=== PATIENT | female | born 1935 | race Caucasian/White ===

== ENCOUNTER 2016-09-10 11:14 | Emergency (ER) | payer MEDICARE, OTHER ==
[~2016-09-10] VITALS: Ht 152.4 cm; Wt 55.0 kg
[~2016-09-10 11:14] MED LIST: ACET325 PO; ASPI81TA82 PO; CALTTAB5 PO; COZA25TA PO; MULTCAP20 PO; OMEP20TA PO; PREM0.3T2 PO; SYMB80AE INH
[2016-09-10 11:17] VITALS: BP 140/67; PULSE 95; RESP 17; TEMP 98.6; O2SAT 97
[2016-09-10] MEDS ORDERED: ICAPCAP PO (11:43)
[2016-09-10] MEDS ORDERED: COZA50TA PO (11:43)
[2016-09-10] MEDS ORDERED: ASPI1TAB69 PO (11:43)
[2016-09-10] MEDS ORDERED: OMEP20TA PO (11:43)
[2016-09-10] MEDS ORDERED: SYMB160A INH (11:43)
[2016-09-10] MEDS ORDERED: CALTTAB PO (11:43)
--- NOTE | 2016-09-10 12:09 | PD ---
HPI Chief Complaint: Cold / Flu Symptoms Time Seen by Provider: 11:48 Travel History International Travel<30 days: No Contact w/Intl Traveler<30days: No Traveled to known affect area: No History of Present Illness HPI This 81-year-old female says she been having a cough and sore throat. She has been sick off and on since last . She says she had gone to visit family over the holidays and a lot of them had upper respiratory infections. She has been trying to drink lots of fluids. She says that yesterday she felt very weak and thought he passed out at one point. She lay down on the bathroom floor and did not pass out. She has a history of breast cancer. She had been started on anestrazole a few weeks ago. She developed a lot of muscle cramping and was taken off of the medication. She says that yesterday she had some pain across her chest which she attributed to the anestrazole. She has been coughing. PFSH Past Medical History Hx Anticoagulant Therapy: Yes (ASA 81 MG DAILY) Asthma: Yes Cancer: Yes (nonhodgkins lymphoma) Cardiovascular Problems: Yes (HTN) Chemotherapy: No Diabetes: No Diminished Hearing: No Gastrointestinal Disorders: Yes (GERD) Glaucoma: Yes Genitourinary: Yes (FREQUENT UTI) Hypertension: Yes Immune Disorder: No Musculoskeletal: Yes (ARTHRITIS, CERVICAL PROBLEMS) Immunizations Current: Yes Tetanus Vaccination: < 5 Years Influenza Vaccination: Yes Past Surgical History Gynecologic Surgery: Yes (D&C X 2) Joint Replacement: No Oral Surgery: Yes (TONSILLECTOMY) Pacemaker: No Other Surgery: Yes (bilateral mastectomy) Social History Alcohol Use: Yes (occ) Tobacco Use: No Substance Use: No Allergies-Medications (Allergen,Severity, Reaction): Coded Allergies: Cipro (Verified Allergy, Severe, 09/10/16) Codeine (Verified Allergy, Severe, 09/10/16) Ezetimibe (Verified Allergy, Severe, ALLERGY TO VYTORIN : EZETIMIBE/ SIMVASTATIN, 09/10/16) Lipitor (Verified Allergy, Severe, 09/10/16) Simvastatin (Verified Allergy, Severe, ALLERGY TO VYTORIN: EZETIMIBE/ SIMVASTATIN: ALL TO CRESTOR, 09/10/16) Bactrim (Verified Allergy, Intermediate, HIVES, 09/10/16) Combigan (Verified Allergy, Intermediate, INCREASES BP, 09/10/16) Niacin (Verified Allergy, Intermediate, RASH, 09/10/16) Xalatan (Unverified Allergy, Unknown, INCREASED BP, 09/10/16) Lyrica (Unverified Adverse Reaction, Unknown, UNABLE TO FUNCTION; MAKES HER GOOFY, 09/10/16) Reported Meds & Prescriptions Reported Meds & Active Scripts Active Reported Symbicort Inh (Budesonide/Formoterol Fumarate) 160-4.5 Mcg/Act Aero 1 Puff INH Q12HR PRN Caltrate 600+D (Calcium Carbonate-Cholecalciferol) 600-800 Mg-Unit Tab 1 Tab PO DAILY Icaps (Multiple Vitamins W/ Minerals) 1 Cap 1 Cap PO DAILY Aspirin 81 Mg Tabdr 81 Mg PO DAILY Omeprazole 20 Mg Tab 20 Mg PO DIRECTED PRN Cozaar (Losartan Potassium) 50 Mg Tab 50 Mg PO DAILY Review of Systems General / Constitutional: No: Fever, Chills Eyes: No: Diploplia, Blurred Vision HENT: No: Headaches Cardiovascular: Positive: Chest Pain or Discomfort Respiratory: Positive: Cough, Shortness of Breath Gastrointestinal: No: Nausea, Vomiting Genitourinary: No: Urgency, Frequency Musculoskeletal: Positive: Myalgias, Arthralgias Skin: No Rash Neurologic: No: Weakness Physical Exam Narrative GENERAL: Well-developed female SKIN: Warm and dry. HEAD: Atraumatic. Normocephalic. EYES: Pupils equal and round. No scleral icterus. No injection or drainage. ENT: No nasal bleeding or discharge. Mucous membranes pink and moist. NECK: Trachea midline. No JVD. CARDIOVASCULAR: Regular rate and rhythm. No murmur appreciated. RESPIRATORY: No accessory muscle use. There are some rales at the right base. Breath sounds equal bilaterally. Bilateral mastectomy scars are healing without evidence of infection GASTROINTESTINAL: Abdomen soft, non-tender, nondistended. Hepatic and splenic margins not palpable. MUSCULOSKELETAL: No obvious deformities. No clubbing. No cyanosis. No edema. NEUROLOGICAL: Awake and alert. No obvious cranial nerve deficits. Motor grossly within normal limits. Normal speech. PSYCHIATRIC: Appropriate mood and affect; insight and judgment normal. Data Data Last Documented VS Vital Signs Date Time Temp Pulse Resp B/P Pulse Ox O2 Delivery O2 Flow Rate FiO2 09/10/16 13:17 83 16 154/74 96 Room Air 09/10/16 11:17 98.6 Orders Electrocardiogram (09/10/16 12:05) Complete Blood Count With Diff (09/10/16 12:05) Comprehensive Metabolic Panel (09/10/16 12:05) Troponin I (09/10/16 12:05) B-Type Natriuretic Peptide (09/10/16 12:05) Urinalysis - C+S If Indicated (09/10/16 12:05) Magnesium (Mg) (09/10/16 12:05) Chest, Pa & Lat (09/10/16 12:05) Sodium Chlorid 0.9% 500 Ml Inj (Ns 500 M (09/10/16 12:15) Urine Culture (09/10/16 12:30) Labs Laboratory Tests Test 09/10/16 09/10/16 12:30 12:40 Urine Collection Type CLEAN CATCH Urine Color YELLOW Urine Turbidity SLIGHTY CLOUDY Urine pH 5.5 Urine Specific [place] 1.020 Urine Protein NEG mg/dL Urine Glucose (UA) NEG mg/dL Urine Ketones NEG mg/dL Urine Occult Blood NEG Urine Nitrite NEG Urine Bilirubin NEG Urine Leukocyte Esterase SMALL Urine RBC 0-3 /hpf Urine WBC 25-49 /hpf Urine WBC Clumps MOD Urine Bacteria FEW /hpf Microscopic Urinalysis Comment CULTURE INDICATED White Blood Count 6.9 TH/MM3 Red Blood Count 3.87 MIL/MM3 Hemoglobin 12.3 GM/DL Hematocrit 37.5 % Mean Corpuscular Volume 97.0 FL Mean Corpuscular Hemoglobin 31.8 PG Mean Corpuscular Hemoglobin 32.8 % Concent Red Cell Distribution Width 12.8 % Platelet Count 228 TH/MM3 Mean Platelet Volume 6.7 FL Neutrophils (%) (Auto) 50.5 % Lymphocytes (%) (Auto) 25.1 % Monocytes (%) (Auto) 7.5 % Eosinophils (%) (Auto) 16.2 % Basophils (%) (Auto) 0.7 % Neutrophils # (Auto) 3.6 TH/MM3 Lymphocytes # (Auto) 1.7 TH/MM3 Monocytes # (Auto) 0.5 TH/MM3 Eosinophils # (Auto) 1.1 TH/MM3 Basophils # (Auto) 0.0 TH/MM3 CBC Comment DIFF FINAL Differential Comment Sodium Level 145 MEQ/L Potassium Level 4.2 MEQ/L Chloride Level 107 MEQ/L Carbon Dioxide Level 26.6 MEQ/L Anion Gap 11 MEQ/L Blood Urea Nitrogen 19 MG/DL Creatinine 1.30 MG/DL Estimat Glomerular Filtration 39 ML/MIN Rate Random Glucose 97 MG/DL Calcium Level 9.1 MG/DL Magnesium Level 1.8 MG/DL Total Bilirubin 0.1 MG/DL Aspartate Amino Transf 31 U/L (AST/SGOT) Alanine Aminotransferase 23 U/L (ALT/SGPT) Alkaline Phosphatase 87 U/L Troponin I LESS THAN 0.02 NG/ML B-Type Natriuretic Peptide 82 PG/ML Total Protein 6.9 GM/DL Albumin 3.1 GM/DL [facility] Medical Decision Making Medical Screen Exam Complete: Yes Emergency Medical Condition: Yes Medical Record Reviewed: Yes Differential Diagnosis Differential includes URI, UTI, pneumonia Narrative Course Chest x-ray is negative. Urinalysis does show large amount of white cells. The patient has a history of frequent urinary tract infections. She was treated with amoxicillin and beginning of August. I will prescribe Macrobid her white count is normal Diagnosis Primary Impression: Urinary tract infection Qualified Code: N39.0 - Urinary tract infection without hematuria, site unspecified Scripts Nitrofurantoin Monohydrate Macrocrystals (Macrobid)100 Mg [id number] Mg PO BID 7 Days Ref 0 Prov:Alexis Gomez MD 09/10/16 Disposition: 01 DISCHARGE HOME Condition: Stable Alexis Gomez MD Sep 10, 2016 12:09
[2016-09-10] MEDS ORDERED: SODIUM CHLORID 0.9% 500 ML INJ 500 ML IV ONE (12:15)
[2016-09-10 12:41] LABS: BLOOD, URINE NEG (NEG); GLUCOSE,URINE NEG (NEG); KETONE, URINE NEG (NEG); NITRITE,URINE NEG (NEG); PH, URINE 5.5 (5.0-8.5)
[2016-09-10 12:47] LABS: METHOD OF COLLECTION CLEAN CATCH; URINE COLOR YELLOW (YELLW/STRAW)
[2016-09-10 12:53] LABS: AUTOMATED NEUTROPHIL # 3.6 TH/MM3 (1.8-7.7); BASOPHIL % 0.7 % (0.0-2.0); EOSINOPHIL # 1.1 TH/MM3 (0-0.4); EOSINOPHIL % 16.2 % (0.0-4.0); HEMATOCRIT 37.5 % (35.0-46.0); HEMO FLAGS DIFF FINAL; LYMPH % 25.1 % (9.0-44.0); LYMPHOCYTE # 1.7 TH/MM3 (1.0-4.8); MEAN CORPUSCULAR HEMOGLOBIN 31.8 PG (27.0-34.0); MEAN CORPUSCULAR HGB CONC 32.8 % (32.0-36.0); MONO % 7.5 % (0.0-8.0); NEUT % 50.5 % (16.0-70.0); PLATELET COUNT 228 TH/MM3 (150-450); RED BLOOD COUNT 3.87 MIL/MM3 (4.00-5.30); RED CELL DISTRIBUTION WIDTH 12.8 % (11.6-17.2); WHITE BLOOD COUNT 6.9 TH/MM3 (4.0-11.0)
[2016-09-10 12:54] LABS: BACTERIA, URINE FEW /hpf; COMMENT (UR) CULTURE INDICATED; CULTURE IF INDICATED CULTURE INDICATED; RBC, URINE 0-3 /hpf (0-3)
[2016-09-10 13:02] LABS: CHLORIDE 107 MEQ/L (98-107); POTASSIUM 4.2 MEQ/L (3.5-5.1); SODIUM (NA) 145 MEQ/L (136-145)
[2016-09-10 13:06] LABS: ANION GAP 11 MEQ/L (5-15); BICARBONATE 26.6 MEQ/L (21.0-32.0); BLOOD UREA NITROGEN 19 MG/DL (7-18); MAGNESIUM 1.8 MG/DL (1.5-2.5)
--- NOTE | 2016-09-10 13:06 | RADHPO ---
EXAM DATE/TIME: 09/10/2016 12:23 [facility] COMPARISON: No previous studies available for comparison. INDICATIONS : Short of breath, cough MEDICAL HISTORY : Carcinoma, breast. Chronic obstructive pulmonary disease. SURGICAL HISTORY : Mastectomy, bilateral. [place] ENCOUNTER: Initial ACUITY: 4 - 6 days PAIN SCORE: 0/10 LOCATION: Bilateral chest FINDINGS: [id number] is in good position. The lungs are clear. Heart and pulmonary vascularity are normal. Portion of bony skeleton visualized is unremarkable. CONCLUSION: Negative chest for acute disease. Axel Ohara MD FACR on September 10, 2016 at 13:04 Board Certified Radiologist. This report was verified electronically.
[2016-09-10 13:09] LABS: ALT (GPT) 23 U/L (10-53); AST (GOT) 31 U/L (15-37); GLOMERULAR FILTRATION RATE 39 ML/MIN (>89)
[2016-09-10 13:10] LABS: TOTAL BILIRUBIN ADULT 0.1 MG/DL (0.2-1.0)
[2016-09-10 13:12] LABS: ALKALINE PHOSPHATASE 87 U/L (45-117)
[2016-09-10 13:17] VITALS: BP 154/74; PULSE 83; RESP 16; O2SAT 96
[2016-09-10] MEDS ORDERED: MACR100C2 PO (13:34)
--- NOTE | 2016-09-10 17:36 | EKG ---
Date Performed: 09/10/2016 Time Performed: 12:10:18 PTAGE: 81 years EKG: Sinus rhythm Possible anterior infarct - age undetermined Abnormal ECG NO PREVIOUS TRACING DOCTOR: Mao Lopez Interpretating Date/Time 09/10/2016 17:35:03
== END 2016-09-10 13:47 | disposition home or self-care (01) ==
LOC: PHED 11:14
DX: N39.0 Urinary tract infection, site not specified (principal); R94.31 Abnormal electrocardiogram [ECG] [EKG]; B96.20 Unspecified Escherichia coli [E. coli] as the cause of diseases classified elsewhere
CPT/HCPCS: 71020; 80053; 81001; 83735; 83880; 84484; 85025; 87077; 87086; 87186; 93005; 96360; 99285; J7040

== ENCOUNTER → 2016-09-15 | Outpatient (CLI) | payer MEDICARE, OTHER ==
[~2016-09-15] MED LIST changes: -ACET325 PO; +ASPI1TAB69 PO; -ASPI81TA82 PO; +CALTTAB PO; -CALTTAB5 PO; -COZA25TA PO; +COZA50TA PO; +ICAPCAP PO; +MACR100C2 PO; -MULTCAP20 PO; -PREM0.3T2 PO; +SYMB160A INH; -SYMB80AE INH
== END ==
LOC: PLAB 11:18
PROVIDERS: ATTEND Family Medicine
DX: M35.3 Polymyalgia rheumatica (principal)
CPT/HCPCS: 36415; 85652

== ENCOUNTER → 2016-09-26 | Outpatient (CLI) | payer MEDICARE, OTHER ==
[2016-09-26 13:17] LABS: HEMATOCRIT 37.3 % (35.0-46.0); MEAN CORPUSCULAR HEMOGLOBIN 32.6 PG (27.0-34.0); MEAN CORPUSCULAR HGB CONC 33.3 % (32.0-36.0); PLATELET COUNT 333 TH/MM3 (150-450); RED CELL DISTRIBUTION WIDTH 12.7 % (11.6-17.2); REVIEW FLAG FINAL; WHITE BLOOD COUNT 8.7 TH/MM3 (4.0-11.0)
[2016-09-26 13:38] LABS: BICARBONATE 27.3 MEQ/L (21.0-32.0); MAGNESIUM 2.1 MG/DL (1.5-2.5); POTASSIUM 4.1 MEQ/L (3.5-5.1)
== END ==
LOC: PLAB 08:36
PROVIDERS: ATTEND Family Medicine
DX: N18.3 Chronic kidney disease, stage 3 (moderate) (principal); R53.83 Other fatigue
CPT/HCPCS: 36415; 80048; 83735; 84100; 84443; 85027

== ENCOUNTER → 2016-12-05 | Outpatient (CLI) | payer MEDICARE, OTHER ==
[2016-12-05 13:33] LABS: HEMATOCRIT 37.8 % (35.0-46.0); MEAN CELL VOLUME 95.9 FL (80.0-100.0); MEAN CORPUSCULAR HEMOGLOBIN 31.6 PG (27.0-34.0); PLATELET COUNT 263 TH/MM3 (150-450); RED BLOOD COUNT 3.93 MIL/MM3 (4.00-5.30); RED CELL DISTRIBUTION WIDTH 14.1 % (11.6-17.2); REVIEW FLAG FINAL; WHITE BLOOD COUNT 7.8 TH/MM3 (4.0-11.0)
[2016-12-05 14:04] LABS: ALT (GPT) 19 U/L (10-53); ANION GAP 5 MEQ/L (5-15); AST (GOT) 18 U/L (15-37); BICARBONATE 29.2 MEQ/L (21.0-32.0); BLOOD UREA NITROGEN 24 MG/DL (7-18); CHLORIDE 107 MEQ/L (98-107); GLOMERULAR FILTRATION RATE 43 ML/MIN (>89); GLUCOSE,FASTING 88 MG/DL (74-99); POTASSIUM 4.7 MEQ/L (3.5-5.1); SODIUM (NA) 141 MEQ/L (136-145)
[2016-12-05 14:06] LABS: ALKALINE PHOSPHATASE 66 U/L (45-117); HDL CHOLESTEROL 46.6 MG/DL (40.0-60.0); LDL CHOLESTEROL 151 MG/DL (0-99); LDL CHOLESTEROL DIRECT 174 MG/DL (0-99); TOTAL BILIRUBIN ADULT 0.3 MG/DL (0.2-1.0)
== END ==
LOC: PLAB 07:53
PROVIDERS: ATTEND Family Medicine
DX: I25.10 Atherosclerotic heart disease of native coronary artery without angina pectoris (principal); E78.2 Mixed hyperlipidemia; I10 Essential (primary) hypertension
CPT/HCPCS: 36415; 80053; 80061; 83721; 85027; 85652

== ENCOUNTER → 2017-01-12 | Outpatient (CLI) | payer MEDICARE, OTHER | LOC: PLAB 10:51 | PROVIDERS: ATTEND Specialist | DX: R70.0 Elevated erythrocyte sedimentation rate (principal); M31.6 Other giant cell arteritis | CPT/HCPCS: 36415; 85652 ==

== ENCOUNTER → 2017-03-02 | Outpatient (CLI) | payer MEDICARE, OTHER ==
[2017-03-02 13:16] LABS: MEAN CELL VOLUME 96.7 FL (80.0-100.0); MEAN CORPUSCULAR HEMOGLOBIN 31.3 PG (27.0-34.0); MEAN CORPUSCULAR HGB CONC 32.4 % (32.0-36.0); PLATELET COUNT 288 TH/MM3 (150-450); RED BLOOD COUNT 3.82 MIL/MM3 (4.00-5.30); RED CELL DISTRIBUTION WIDTH 14.3 % (11.6-17.2); REVIEW FLAG FINAL; WHITE BLOOD COUNT 7.5 TH/MM3 (4.0-11.0)
[2017-03-02 13:45] LABS: WESTERGREN SEDIMENTATION RATE 24 mm/hr (0-30)
[2017-03-02 13:48] LABS: ANION GAP 6 MEQ/L (5-15); AST (GOT) 22 U/L (15-37); BLOOD UREA NITROGEN 21 MG/DL (7-18); CHLORIDE 107 MEQ/L (98-107); GLOMERULAR FILTRATION RATE 44 ML/MIN (>89); GLUCOSE,FASTING 88 MG/DL (74-99); POTASSIUM 4.5 MEQ/L (3.5-5.1); SODIUM (NA) 140 MEQ/L (136-145)
[2017-03-02 13:59] LABS: ALKALINE PHOSPHATASE 70 U/L (45-117); ALT (GPT) 18 U/L (10-53); FREE T4 0.91 NG/DL (0.76-1.46); HDL CHOLESTEROL 60.8 MG/DL (40.0-60.0); LDL CHOLESTEROL 166 MG/DL (0-99); LDL CHOLESTEROL DIRECT 165 MG/DL (0-99); TOTAL BILIRUBIN ADULT 0.4 MG/DL (0.2-1.0)
== END ==
LOC: PLAB 09:22
PROVIDERS: ATTEND Family Medicine
DX: M31.6 Other giant cell arteritis (principal); I25.10 Atherosclerotic heart disease of native coronary artery without angina pectoris; E78.2 Mixed hyperlipidemia; I10 Essential (primary) hypertension; E03.8 Other specified hypothyroidism; M35.3 Polymyalgia rheumatica
CPT/HCPCS: 36415; 80053; 80061; 83721; 84439; 84443; 85027; 85652

== ENCOUNTER → 2017-06-21 | Outpatient (CLI) | payer MEDICARE, OTHER ==
[2017-06-21 14:01] LABS: MEAN CELL VOLUME 99.5 FL (80.0-100.0); MEAN CORPUSCULAR HEMOGLOBIN 33.3 PG (27.0-34.0); MEAN CORPUSCULAR HGB CONC 33.5 % (32.0-36.0); PLATELET COUNT 311 TH/MM3 (150-450); RED BLOOD COUNT 3.72 MIL/MM3 (4.00-5.30); RED CELL DISTRIBUTION WIDTH 13.4 % (11.6-17.2); REVIEW FLAG FINAL; WHITE BLOOD COUNT 6.9 TH/MM3 (4.0-11.0)
[2017-06-21 14:26] LABS: ANION GAP 5 MEQ/L (5-15); AST (GOT) 17 U/L (15-37); BICARBONATE 27.2 MEQ/L (21.0-32.0); BLOOD UREA NITROGEN 21 MG/DL (7-18); CHLORIDE 106 MEQ/L (98-107); GLOMERULAR FILTRATION RATE 45 ML/MIN (>89); GLUCOSE,FASTING 79 MG/DL (74-99); POTASSIUM 4.6 MEQ/L (3.5-5.1); SODIUM (NA) 138 MEQ/L (136-145)
[2017-06-21 14:27] LABS: ALT (GPT) 17 U/L (10-53)
[2017-06-21 14:37] LABS: ALKALINE PHOSPHATASE 65 U/L (45-117); HDL CHOLESTEROL 57.6 MG/DL (40.0-60.0); LDL CHOLESTEROL 144 MG/DL (0-99); LDL CHOLESTEROL DIRECT 166 MG/DL (0-99); TOTAL BILIRUBIN ADULT 0.4 MG/DL (0.2-1.0)
[2017-06-21 14:39] LABS: WESTERGREN SEDIMENTATION RATE 22 mm/hr (0-30)
== END ==
LOC: PLAB 07:56
PROVIDERS: ATTEND Family Medicine
DX: I25.10 Atherosclerotic heart disease of native coronary artery without angina pectoris (principal); R53.83 Other fatigue; E78.4 Other hyperlipidemia; M35.3 Polymyalgia rheumatica
CPT/HCPCS: 36415; 80053; 80061; 83721; 84443; 85027; 85652

== ENCOUNTER → 2017-10-11 | Outpatient (CLI) | payer MEDICARE ==
[~2017-10-11] MED LIST changes: -OMEP20TA PO; +OMEP20TA93 PO
[2017-10-11 10:20] LABS: HEMATOCRIT 35.9 % (35.0-46.0); HEMOGLOBIN 12.4 GM/DL (11.6-15.3); MEAN CELL VOLUME 96.8 FL (80.0-100.0); MEAN CORPUSCULAR HEMOGLOBIN 33.3 PG (27.0-34.0); MEAN CORPUSCULAR HGB CONC 34.4 % (32.0-36.0); MEAN PLATELET VOLUME 6.9 FL (7.0-11.0); PLATELET COUNT 329 TH/MM3 (150-450); RED BLOOD COUNT 3.71 MIL/MM3 (4.00-5.30); RED CELL DISTRIBUTION WIDTH 13.2 % (11.6-17.2); WHITE BLOOD COUNT 9.6 TH/MM3 (4.0-11.0)
[2017-10-11 10:36] LABS: ALBUMIN 3.6 GM/DL (3.4-5.0); AST (GOT) 18 U/L (15-37); BICARBONATE 27.5 MEQ/L (21.0-32.0); BLOOD UREA NITROGEN 15 MG/DL (7-18); CALCIUM 9.4 MG/DL (8.5-10.1); CHLORIDE 102 MEQ/L (98-107); GLOMERULAR FILTRATION RATE 47 ML/MIN (>89); SODIUM (NA) 137 MEQ/L (136-145)
[2017-10-11 10:38] LABS: CHOLESTEROL 230 MG/DL (120-200); GLUCOSE,FASTING 91 MG/DL (74-99); MAGNESIUM 2.3 MG/DL (1.5-2.5)
[2017-10-11 10:47] LABS: ALKALINE PHOSPHATASE 93 U/L (45-117); ALT (GPT) 15 U/L (10-53); CHOLESTEROL/ HDL RATIO 4.18 RATIO; LDL CHOLESTEROL 149 MG/DL (0-99); LDL CHOLESTEROL DIRECT 162 MG/DL (0-99); PHOSPHORUS 3.5 MG/DL (2.5-4.9); TOTAL BILIRUBIN ADULT 0.3 MG/DL (0.2-1.0); TOTAL PROTEIN 7.5 GM/DL (6.4-8.2); TRIGLYCERIDES 129 MG/DL (42-150)
== END ==
LOC: PLAB 07:25
PROVIDERS: ATTEND Family Medicine
DX: I25.10 Atherosclerotic heart disease of native coronary artery without angina pectoris (principal); N18.3 Chronic kidney disease, stage 3 (moderate); R53.83 Other fatigue; E78.5 Hyperlipidemia, unspecified
CPT/HCPCS: 36415; 80053; 80061; 83721; 83735; 84100; 85027

== ENCOUNTER 2017-10-22 15:20 | Observation (INO) | payer MEDICARE ==
[2017-10-22] VITALS (7 sets, daily range): BP systolic 145–208; BP diastolic 61–88; PULSE 76–90; RESP 14–20; TEMP 96.4–99; O2SAT 95–100
[~2017-10-22] VITALS: Ht 152.4 cm; Wt 54.3 kg
[2017-10-22] MEDS ORDERED: ASPI81CH6 CHEW (15:42)
[2017-10-22] MEDS ORDERED: ALPR.25 PO (15:42)
[2017-10-22] MEDS ORDERED: LATA0.002 EACH EYE (15:42)
[2017-10-22] MEDS ORDERED: OCUVTAB4 PO (15:43)
[2017-10-22] MEDS ORDERED: SODIUM CHLORIDE 0.9% FLUSH 10 ML FLUSH IVF PRN (15:45)
--- NOTE | 2017-10-22 15:55 | PD ---
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 The patient was apparently out shopping with her sister when she developed a headache and nausea. She then walked to the car and was found unresponsive. Per EMS the patient's GCS was 3 for fire rescue, however she was suddenly arouse when they placed her on a monitor and performed a sternal rub. Patient denies having had chest pain or dyspnea. She currently feels well aside from a slight frontal headache which she rates as 4 out of 10. This is not the worst headache of her life. She has baseline visual changes from glaucoma and macular degeneration which she states is unchanged from baseline. No fevers, chills, cough, or recent illness. No hemoptysis. No melena or hematochezia. She denies history of DVT or PE. History of hypertension, however denies history of any cardiac disease. PFSH Past Medical History Hx Anticoagulant Therapy: Yes (ASA 81 MG DAILY) Asthma: Yes Cancer: Yes (nonhodgkins lymphoma, breast ) Cardiovascular Problems: Yes (HTN) High Cholesterol: Yes Chemotherapy: No COPD: Yes Diabetes: No Diminished Hearing: No Gastrointestinal Disorders: Yes (GERD) Glaucoma: Yes Genitourinary: Yes (FREQUENT UTI) Hypertension: Yes Immune Disorder: No Medical other: Yes (Macular degen., ocular migraine ) Musculoskeletal: Yes (ARTHRITIS, CERVICAL PROBLEMS) Immunizations Current: Yes Tetanus Vaccination: < 5 Years Influenza Vaccination: Yes ?: Not Menopausal: Yes Past Surgical History Gynecologic Surgery: Yes (D&C X 2) Joint Replacement: No Oral Surgery: Yes (TONSILLECTOMY) Pacemaker: No Other Surgery: Yes (bilateral mastectomy) Social History Alcohol Use: Yes (Occ.) Tobacco Use: No Substance Use: No Allergies-Medications (Allergen,Severity, Reaction): Coded Allergies: atorvastatin (Unverified Allergy, Severe, 10/22/17) ciprofloxacin (Unverified Allergy, Severe, Rash, 10/22/17) codeine (Unverified Allergy, Severe, Hives/itching, 10/22/17) ezetimibe (Unverified Allergy, Severe, ALLERGY TO VYTORIN : EZETIMIBE/ SIMVASTATIN, 10/22/17) pitavastatin (Verified Allergy, Severe, "Made me feel crazy", 10/22/17) simvastatin (Unverified Allergy, Severe, ALLERGY TO VYTORIN: EZETIMIBE/ SIMVASTATIN: ALL TO CRESTOR, 10/22/17) brimonidine (Unverified Allergy, Intermediate, INCREASES BP, 10/22/17) niacin (Unverified Allergy, Intermediate, RASH, 10/22/17) sulfamethoxazole (Unverified Allergy, Intermediate, HIVES, 10/22/17) timolol (Unverified Allergy, Intermediate, INCREASES BP, 10/22/17) trimethoprim (Unverified Allergy, Intermediate, HIVES, 10/22/17) latanoprost (Unverified Allergy, Unknown, INCREASED BP, 10/22/17) Aoxrrtd-Klj-Bkh Reductase Inhibitor (Verified Adverse Reaction, Severe, Muscle and joint pain, 10/22/17) pregabalin (Unverified Adverse Reaction, Unknown, UNABLE TO FUNCTION; MAKES HER GOOFY, 10/22/17) Reported Meds & Prescriptions Reported Meds & Active Scripts Active Reported Preservision Areds (Multiple Vitamins W/ Minerals) 1 Tab 1 Tab PO DAILY Latanoprost Opth Drops (Latanoprost) 0.005% Drops 1 Drop EACH EYE HS Refrigerate until opened. Xanax (Alprazolam) 0.25 Mg Tab 0.25 Mg PO Q8H PRN Aspirin Low Dose (Aspirin) 81 Mg Chew 81 Mg CHEW DAILY Symbicort Inh (Budesonide/Formoterol Fumarate) 160-4.5 Mcg/Act Aero 1 Puff INH Q12HR PRN Cozaar (Losartan Potassium) 50 Mg Tab 50 Mg PO DAILY Review of Systems Except as stated in HPI: all other systems reviewed are Neg Physical Exam Narrative GENERAL: Well-developed, well-nourished, awake, alert, comfortable, no apparent distress. SKIN: Focused skin assessment warm/dry. No rash. No pallor. HEAD: Atraumatic. Normocephalic. EYES: Pupils equal and round. No scleral icterus. No injection or drainage. ENT: Mucous membranes pink and moist. NECK: Trachea midline. No JVD. CARDIOVASCULAR: Regular rate and rhythm. No murmur appreciated. Distal pulses brisk and equal bilaterally. RESPIRATORY: No accessory muscle use. Clear to auscultation. Breath sounds equal bilaterally. GASTROINTESTINAL: Abdomen soft, non-tender, nondistended. MUSCULOSKELETAL: No obvious deformities. No clubbing. No cyanosis. No edema. NEUROLOGICAL: Awake and alert. No obvious cranial nerve deficits. Motor grossly within normal limits. Normal speech. PSYCHIATRIC: Appropriate mood and affect; insight and judgment normal. Data Data Last Documented VS Vital Signs Date Time Temp Pulse Resp B/P (MAP) Pulse Ox O2 Delivery O2 Flow Rate FiO2 10/22/17 18:10 88 14 169/68 (101) 98 Room Air 10/22/17 15:30 98.3 Orders Orders Electrocardiogram (10/22/17 15:43) Complete Blood Count With Diff (10/22/17 15:43) Comprehensive Metabolic Panel (10/22/17 15:43) Ckmb (Isoenzyme) Profile (10/22/17 15:43) Troponin I (10/22/17 15:43) Act Partial Throm Time (Ptt) (10/22/17 15:43) Prothrombin Time / Inr (Pt) (10/22/17 15:43) Urinalysis - C+S If Indicated (10/22/17 15:43) Chest, Single Ap (10/22/17 15:43) Ct Brain W/O Iv Contrast(Rout) (10/22/17 15:43) Ecg Monitoring (10/22/17 15:43) Iv Access Insert/Monitor (10/22/17 15:43) Oximetry (10/22/17 15:43) Sodium Chloride 0.9% Flush (Ns Flush) (10/22/17 15:45) Ct Pulmonary Angiogram (10/22/17 ) Cath For Specimen (10/22/17 17:40) Iodixanol 320 Inj (Rad Ct) (Visipaque 32 (10/22/17 17:52) Urine Culture (10/22/17 16:00) Nitrofurantoin Monohyd Macrocr (Macrobid (10/22/17 18:45) Place In Observation (10/22/17 ) Vital Signs (Adult) Q4H (10/22/17 19:18) Activity Oob With Assistance (10/22/17 19:18) Diet Regular Basic (10/23/17 Breakfast) Sodium Chloride 0.9% Flush (Ns Flush) (10/22/17 19:30) Sodium Chloride 0.9% Flush (Ns Flush) (10/22/17 21:00) Acetaminophen (Tylenol) (10/22/17 19:30) Ondansetron Inj (Zofran Inj) (10/22/17 19:30) Basic Metabolic Panel (Bmp) (10/23/17 06:00) Complete Blood Count With Diff (10/23/17 06:00) Heparin Inj (Heparin Inj) (10/22/17 19:30) Naloxone Inj (Narcan Inj) (10/22/17 19:30) Docusate Sodium-Senna (Berta-Colace) (10/22/17 21:00) Magnesium Hydroxide Liq (Milk Of Magnesi (10/22/17 19:30) Sennosides (Senokot) (10/22/17 19:30) Bisacodyl Supp (Dulcolax Supp) (10/22/17 19:30) Lactulose Liq (Lactulose Liq) (10/22/17 19:30) Nitrofurantoin Monohyd Macrocr (Macrobid (10/23/17 09:00) Manufacturing Electrician / Telemetry ERIC.Q8H (10/22/17 19:18) Echo 2d Comp With Doppler (10/22/17 ) Us Carotid Arteries Comp Bilat (10/22/17 ) Labs Laboratory Tests Test 10/22/17 16:00 10/22/17 16:20 Urine Color YELLOW Urine Turbidity CLEAR Urine pH 6.0 Urine Specific [place] 1.019 Urine Protein NEG mg/dL Urine Glucose (UA) NEG mg/dL Urine Ketones NEG mg/dL Urine Occult Blood NEG Urine Nitrite NEG Urine Bilirubin NEG Urine Leukocyte Esterase NEG Urine RBC 0-2 /hpf Urine WBC 9-14 /hpf Urine Squamous Epithelial Cells 0-5 /hpf Urine Bacteria MANY /hpf Microscopic Urinalysis Comment CULTURE INDICATED White Blood Count 11.3 TH/MM3 Red Blood Count 3.69 MIL/MM3 Hemoglobin 11.9 GM/DL Hematocrit 35.2 % Mean Corpuscular Volume 95.4 FL Mean Corpuscular Hemoglobin 32.4 PG Mean Corpuscular Hemoglobin Concent 33.9 % Red Cell Distribution Width 12.9 % Platelet Count 287 TH/MM3 Mean Platelet Volume 6.5 FL Neutrophils (%) (Auto) 75.5 % Lymphocytes (%) (Auto) 10.3 % Monocytes (%) (Auto) 2.6 % Eosinophils (%) (Auto) 11.0 % Basophils (%) (Auto) 0.6 % Neutrophils # (Auto) 8.4 TH/MM3 Lymphocytes # (Auto) 1.2 TH/MM3 Monocytes # (Auto) 0.3 TH/MM3 Eosinophils # (Auto) 1.2 TH/MM3 Basophils # (Auto) 0.1 TH/MM3 CBC Comment DIFF FINAL Differential Comment Prothrombin Time 10.2 SEC Prothromb Time International Ratio 1.0 RATIO Activated Partial Thromboplast Time 23.8 SEC Blood Urea Nitrogen 24 MG/DL Creatinine 1.30 MG/DL Random Glucose 119 MG/DL Total Protein 7.4 GM/DL Albumin 3.6 GM/DL Calcium Level 8.5 MG/DL Alkaline Phosphatase 82 U/L Aspartate Amino Transf (AST/SGOT) 20 U/L Alanine Aminotransferase (ALT/SGPT) 15 U/L Total Bilirubin 0.3 MG/DL Sodium Level 138 MEQ/L Potassium Level 4.2 MEQ/L Chloride Level 105 MEQ/L Carbon Dioxide Level 28.0 MEQ/L Anion Gap 5 MEQ/L Estimat Glomerular Filtration Rate 39 ML/MIN Total Creatine Kinase 58 U/L Troponin I LESS THAN 0.02 NG/ML MDM Medical Decision Making Medical Screen Exam Complete: Yes Emergency Medical Condition: Yes Interpretation(s) EKG: Sinus, rate 83, normal axis, normal intervals, no acute ischemic abnormality. Differential Diagnosis Syncope, dysrhythmia, PE, intracranial abnormality, anemia, metabolic abnormality Narrative Course Initial vital signs show heart rate 80, blood pressure 145/61, pulse ox 98% on room air, oral temp of 98.3F. CBC: WBC 11.3, hemoglobin 11.9, hematocrit 35.2, platelets 287. CMP is remarkable for BUN 24, creatinine 1.3, GFR 39 which is around her baseline, otherwise unremarkable. Cardiac enzymes are negative. UA: 9-14 wbc's, many bacteria, culture indicated. Chest x-ray: The lungs are clear. CT head: Senescent changes without acute intracranial abnormality. CT pulmonary angiogram: CONCLUSION: 1. No CT evidence for pulmonary artery embolism. 2. Mild scarring at the lung bases and right lung apex. 3. Otherwise, unremarkable CT examination of the chest. Patient and the patient's sister were made aware of all findings. She is resting comfortably. The patient had no significant events while on the monitor and storage bin tender in the emergency department. Patient admits to taking Mucinex D this morning. This may have contributed to her symptoms of syncope this afternoon. Patient's sister states that the patient was unresponsive for about 3-4 minutes. There was no seizure-like activity. Given her age and medical history, the patient will be admitted for overnight observation for syncope. Case discussed with hospitalist Dr. Pham who will admit the patient to the medical service. Diagnosis Primary Impression: Syncope Qualified Codes: R55 - Syncope and collapse Additional Impression: Urinary tract infection Qualified Codes: N39.0 - Urinary tract infection, site not specified Admitting Information Admitting Physician Requests: Observation Juice Worthy MD Oct 22, 2017 15:55
--- NOTE | 2017-10-22 16:18 | RADRPT ---
EXAM DATE/TIME: 10/22/2017 16:05 [facility] COMPARISON: No previous studies available for comparison. INDICATIONS : Syncope MEDICAL HISTORY : Chronic obstructive pulmonary disease. SURGICAL HISTORY : Mastectomy, bilateral. [place] ENCOUNTER: Initial ACUITY: 1 day PAIN SCORE: 10 LOCATION: Bilateral chest FINDINGS: A single view of the chest demonstrates the lungs to be symmetrically aerated without evidence of mas s, infiltrate or effusion. No evidence of pneumothorax. The cardiomediastinal contours are unremarka ble. Osseous structures are intact. Hemoclips project over the left chest. Dvgidr-y-Moir catheter tip projects over the distal superior vena cava. CONCLUSION: The lungs are clear. Ezio Levy MD on October 22, 2017 at 16:16 Board Certified Radiologist. This report was verified electronically.
[2017-10-22 16:24] LABS: AUTOMATED NEUTROPHIL # 8.4 TH/MM3 (1.8-7.7); BASOPHIL # 0.1 TH/MM3 (0-0.2); BASOPHIL % 0.6 % (0.0-2.0); EOSINOPHIL # 1.2 TH/MM3 (0-0.4); HEMATOCRIT 35.2 % (35.0-46.0); HEMOGLOBIN 11.9 GM/DL (11.6-15.3); LYMPH % 10.3 % (9.0-44.0); LYMPHOCYTE # 1.2 TH/MM3 (1.0-4.8); MEAN CELL VOLUME 95.4 FL (80.0-100.0); MEAN CORPUSCULAR HEMOGLOBIN 32.4 PG (27.0-34.0); MEAN CORPUSCULAR HGB CONC 33.9 % (32.0-36.0); MEAN PLATELET VOLUME 6.5 FL (7.0-11.0); MONO % 2.6 % (0.0-8.0); MONOCYTE # 0.3 TH/MM3 (0-0.9); NEUT % 75.5 % (16.0-70.0); PLATELET COUNT 287 TH/MM3 (150-450); RED BLOOD COUNT 3.69 MIL/MM3 (4.00-5.30); RED CELL DISTRIBUTION WIDTH 12.9 % (11.6-17.2); WHITE BLOOD COUNT 11.3 TH/MM3 (4.0-11.0)
[2017-10-22 16:33] LABS: CHLORIDE 105 MEQ/L (98-107); SODIUM (NA) 138 MEQ/L (136-145)
[2017-10-22 16:35] LABS: CALCIUM 8.5 MG/DL (8.5-10.1)
[2017-10-22 16:36] LABS: ALBUMIN 3.6 GM/DL (3.4-5.0); BLOOD UREA NITROGEN 24 MG/DL (7-18); GLUCOSE,RANDOM 119 MG/DL (74-106)
[2017-10-22 16:37] LABS: PROTHROMBIN TIME - PATIENT 10.2 SEC (9.8-11.6)
[2017-10-22 16:39] LABS: ALT (GPT) 15 U/L (10-53); AST (GOT) 20 U/L (15-37); GLOMERULAR FILTRATION RATE 39 ML/MIN (>89)
[2017-10-22 16:41] LABS: TOTAL BILIRUBIN ADULT 0.3 MG/DL (0.2-1.0); TOTAL PROTEIN 7.4 GM/DL (6.4-8.2)
[2017-10-22 16:42] LABS: ALKALINE PHOSPHATASE 82 U/L (45-117); TROPONIN I LESS THAN 0.02 NG/ML (0.02-0.05)
--- NOTE | 2017-10-22 17:50 | RADRPT ---
EXAM DATE/TIME: 10/22/2017 17:39 [facility] COMPARISON: No previous studies available for comparison. INDICATIONS : Syncope. RADIATION DOSE: CTDIvol (mGy) MEDICAL HISTORY : Chronic obstructive pulmonary disease. Carcinoma, breast. Hypertension. SURGICAL HISTORY : Mastectomy, bilateral. ENCOUNTER: Initial ACUITY: 1 day PAIN SCALE: 0/10 LOCATION: cranial TECHNIQUE: Multiple contiguous axial images were obtained of the head. Using automated exposure control and adj ustment of the mA and/or kV according to patient size, radiation dose was kept as low as reasonably a chievable to obtain optimal diagnostic quality images. DICOM format image data is available electro nically for review and comparison. FINDINGS: CEREBRUM: Moderate cerebral volume loss. The ventricles are normal for degree of atrophy. No evidence of midli ne shift, mass lesion, hemorrhage or acute infarction. No extra-axial fluid collections are seen. POSTERIOR FOSSA: The cerebellum and brainstem are intact. The 4th ventricle is midline. The cerebellopontine angle i s unremarkable. EXTRACRANIAL: The visualized portion of the orbits is intact. SKULL: The calvaria is intact. No evidence of skull fracture. CONCLUSION: 1. Senescent changes without acute intracranial abnormality. Hong De Leon MD on October 22, 2017 at 17:47 Board Certified Radiologist. This report was verified electronically.
[2017-10-22] MEDS ORDERED: IODIXANOL 320 MG/ML 10 ML VIAL (for Rad CT) IVCONTRAST ONE (17:52)
--- NOTE | 2017-10-22 18:00 | RADRPT ---
EXAM DATE/TIME: 10/22/2017 17:45 [facility] COMPARISON: No previous studies available for comparison. INDICATIONS : Syncopal episode. IV CONTRAST: 50 cc Visipaque (iodixanol) IV RADIATION DOSE: 5.84 CTDIvol (mGy) MEDICAL HISTORY : Chronic obstructive pulmonary disease. Carcinoma, breast. SURGICAL HISTORY : Mastectomy, bilateral. ENCOUNTER: Initial ACUITY: 1 day PAIN SCALE: 0/10 LOCATION: chest TECHNIQUE: Volumetric scanning of the chest was performed using a pulmonary embolism protocol MIP images were re constructed. Using automated exposure control and adjustment of the mA and/or kV according to patien t size, radiation dose was kept as low as reasonably achievable to obtain optimal diagnostic quality images. DICOM format image data is available electronically for review and comparison. Follow-up recommendations for detected pulmonary nodules are based at a minimum on nodule size and pa tient risk factors according to Fleischner Society Guidelines. FINDINGS: PULMONARY ARTERIES: No filling defects are seen in the pulmonary arteries through the segmental level. LUNGS: Focal interstitial prominence at the lung bases with associated subtle bronchiectasis. Interstitial a nd groundglass opacities at the right lung apex. PLEURAE: There is no pleural thickening or pleural effusion. MEDIASTINUM: Subcentimeter mediastinal and hilar nodes do not meet CT size criteria. Heart is grossly unremarkable . Thoracic aorta is non-aneurysmal. MUSCULOSKELETAL: Within normal limits for patient age. MISCELLANEOUS: The visualized upper abdominal organs demonstrate no acute abnormality. CONCLUSION: 1. No CT evidence for pulmonary artery embolism. 2. Mild scarring at the lung bases and right lung apex. 3. Otherwise, unremarkable CT examination of the chest. Hong De Leon MD on October 22, 2017 at 17:56 Board Certified Radiologist. This report was verified electronically.
[2017-10-22 18:12] LABS: BILIRUBIN, URINE NEG (NEG); BLOOD, URINE NEG (NEG); GLUCOSE,URINE NEG (NEG); KETONE, URINE NEG (NEG); NITRITE,URINE NEG (NEG); URINE LEUKOCYTE ESTERASE NEG (NEG)
[2017-10-22 18:22] LABS: BACTERIA, URINE MANY /hpf; RBC, URINE 0-2 /hpf (0-3); SQUAMOUS EPITHELIAL CELL URINE 0-5 /hpf (0-5); URINE COLOR YELLOW (YELLW/STRAW)
[2017-10-22] MEDS ORDERED: NITROFURANTOIN MONOHYD MACROCR 100 MG CAP PO ONE (18:45)
[2017-10-22] MEDS ORDERED: GADODIAMIDE PF 287 MG/ML 20 ML VIAL (for RAD MRI) IVCONTRAST ONE (19:27)
[2017-10-22] MEDS ORDERED: SENNOSIDES 8.6 MG TAB PO PRN (19:30)
[2017-10-22] MEDS ORDERED: SODIUM CHLORIDE 0.9% FLUSH 10 ML FLUSH IV FLUSH PRN (19:30)
[2017-10-22] MEDS ORDERED: LACTULOSE SYRUP 20 GM/30 ML CUP PO PRN (19:30)
[2017-10-22] MEDS ORDERED: ONDANSETRON HCL 4 MG/2 ML VIAL IVP PRN (19:30)
[2017-10-22] MEDS ORDERED: MAGNESIUM HYDROXIDE SUSP 30 ML CUP PO PRN (19:30)
[2017-10-22] MEDS ORDERED: NALOXONE HCL 0.4 MG/ML AMP IV PUSH PRN (19:30)
[2017-10-22] MEDS ORDERED: BISACODYL 10 MG SUPP RECTAL PRN (19:30)
[2017-10-22] MEDS: ACETAMINOPHEN 325 MG TAB PO PRN (20:16)
[2017-10-22] MEDS: HEPARIN SODIUM - SQ 10,000 UNITS/ML VIAL SQ SCH (21:49)
[2017-10-22] MEDS: DOCUSATE SODIUM 50 MG/SENNA 8.6 MG TAB PO SCH (21:50)
[2017-10-22] MEDS: SODIUM CHLORIDE 0.9% FLUSH 10 ML FLUSH IV FLUSH SCH (22:34)
[2017-10-22] MEDS ORDERED: cloNIDine HCL 0.1 MG TAB PO ONE (23:30)
[2017-10-23] VITALS (7 sets, daily range): BP systolic 126–169; BP diastolic 59–77; PULSE 77–86; RESP 16–20; TEMP 97.1–98.1; O2SAT 94–98
[2017-10-23 06:45] LABS: BASOPHIL % 0.5 % (0.0-2.0); EOSINOPHIL # 1.2 TH/MM3 (0-0.4); EOSINOPHIL % 12.7 % (0.0-4.0); HEMATOCRIT 34.1 % (35.0-46.0); HEMOGLOBIN 11.1 GM/DL (11.6-15.3); LYMPH % 19.6 % (9.0-44.0); LYMPHOCYTE # 1.9 TH/MM3 (1.0-4.8); MEAN CELL VOLUME 95.2 FL (80.0-100.0); MEAN CORPUSCULAR HGB CONC 32.6 % (32.0-36.0); MONO % 5.7 % (0.0-8.0); MONOCYTE # 0.5 TH/MM3 (0-0.9); NEUT % 61.5 % (16.0-70.0); PLATELET COUNT 288 TH/MM3 (150-450); RED BLOOD COUNT 3.58 MIL/MM3 (4.00-5.30); WHITE BLOOD COUNT 9.6 TH/MM3 (4.0-11.0)
[2017-10-23 06:51] LABS: CALCIUM 8.8 MG/DL (8.5-10.1)
[2017-10-23 06:52] LABS: BICARBONATE 25.1 MEQ/L (21.0-32.0)
[2017-10-23 06:55] LABS: CREATININE 1.1 MG/DL (0.50-1.00)
[2017-10-23] MEDS: DOCUSATE SODIUM 50 MG/SENNA 8.6 MG TAB PO SCH (09:00)
[2017-10-23] MEDS: HEPARIN SODIUM - SQ 10,000 UNITS/ML VIAL SQ SCH ×2 (09:14→21:22)
[2017-10-23] MEDS: NITROFURANTOIN MONOHYD MACROCR 100 MG CAP PO SCH ×2 (09:14→17:53)
[2017-10-23] MEDS: SODIUM CHLORIDE 0.9% FLUSH 10 ML FLUSH IV FLUSH SCH ×2 (09:15→21:22)
--- NOTE | 2017-10-23 09:24 | HHI.HP ---
HPI Service [facility] Primary Care Physician Mark Villanueva MD Admission Diagnosis Syncope, UTI Diagnoses: Chief Complaint: Syncope Travel History International Travel<30 Days: No Contact w/Intl Traveler <30 Da: No Traveled to Known Affected Are: No History of Present Illness 82-year-old female with a medical history significant for lymphoma, breast cancer, and unspecified putamen lesion status post radiation with reported resolution from MRI about 2 weeks ago. The patient reports she was out chopping with her sister when she started to have a headache and mild lightheadedness. She went to sit in the car and minutes later her sister was unable to wake her up for about 3-4 minutes. No reported seizure activities. Patient denies any episodes of chest pain, or palpitations prior to the episode. She does report for the past couple of days she has had some head congestion and the morning of the episode she took some Mucinex DM. On my evaluation, the patient reports she feels great. She denies any lightheadedness , no headache, no focal weakness. Review of Systems Cardiovascular: COMPLAINS OF: Syncope Except as stated in HPI: all other systems reviewed are Neg Past Family Social History Past Medical History lymphoma, breast cancer, and unspecified putamen lesion status post radiation with reported resolution from MRI about 2 weeks ago Past Surgical History Bilateral mastectomy Tonsillectomy Reported Medications Reported Meds & Active Scripts Active Reported Preservision Areds (Multiple Vitamins W/ Minerals) 1 Tab 1 Tab PO DAILY Latanoprost Opth Drops (Latanoprost) 0.005% Drops 1 Drop EACH EYE HS Refrigerate until opened. Xanax (Alprazolam) 0.25 Mg Tab 0.25 Mg PO Q8H PRN Aspirin Low Dose (Aspirin) 81 Mg Chew 81 Mg CHEW DAILY Symbicort Inh (Budesonide/Formoterol Fumarate) 160-4.5 Mcg/Act Aero 1 Puff INH Q12HR PRN Cozaar (Losartan Potassium) 50 Mg Tab 50 Mg PO DAILY Allergies: Coded Allergies: atorvastatin (Unverified Allergy, Severe, 10/22/17) ciprofloxacin (Unverified Allergy, Severe, Rash, 10/22/17) codeine (Unverified Allergy, Severe, Hives/itching, 10/22/17) ezetimibe (Unverified Allergy, Severe, ALLERGY TO VYTORIN : EZETIMIBE/ SIMVASTATIN, 10/22/17) pitavastatin (Verified Allergy, Severe, "Made me feel crazy", 10/22/17) simvastatin (Unverified Allergy, Severe, ALLERGY TO VYTORIN: EZETIMIBE/ SIMVASTATIN: ALL TO CRESTOR, 10/22/17) brimonidine (Unverified Allergy, Intermediate, INCREASES BP, 10/22/17) niacin (Unverified Allergy, Intermediate, RASH, 10/22/17) sulfamethoxazole (Unverified Allergy, Intermediate, HIVES, 10/22/17) timolol (Unverified Allergy, Intermediate, INCREASES BP, 10/22/17) trimethoprim (Unverified Allergy, Intermediate, HIVES, 10/22/17) latanoprost (Unverified Allergy, Unknown, INCREASED BP, 10/22/17) Mabpyxh-Vde-Wjl Reductase Inhibitor (Verified Adverse Reaction, Severe, Muscle and joint pain, 10/22/17) pregabalin (Unverified Adverse Reaction, Unknown, UNABLE TO FUNCTION; MAKES HER GOOFY, 10/22/17) Family History Reviewed and is noncontributory. Social History No tobacco use. Occasional alcohol Physical Exam Vital Signs Vital Signs Date Time Temp Pulse Resp B/P (MAP) Pulse Ox O2 Delivery O2 Flow Rate FiO2 10/23/17 07:59 98.1 77 20 133/61 (85) 97 10/23/17 04:00 97.2 86 16 126/59 (81) 95 10/23/17 00:38 97.8 84 16 151/72 (98) 97 10/22/17 22:30 81 20 173/80 (111) 97 10/22/17 22:20 96.4 90 16 182/85 (117) 96 10/22/17 21:00 86 20 159/82 (107) 97 10/22/17 20:10 99.0 82 20 208/88 (128) 100 10/22/17 20:10 85 20 100 10/22/17 18:10 88 14 169/68 (101) 98 Room Air 10/22/17 16:30 76 14 145/69 (94) 98 Room Air 10/22/17 16:30 98 Room Air 10/22/17 15:30 98.3 80 16 145/61 (89) 98 Physical Exam GENERAL: This is a well-nourished, well-developed patient, in no apparent distress. SKIN: No rashes, ecchymoses or lesions. Cool and dry. HEAD: Atraumatic. Normocephalic. No temporal or scalp tenderness. EYES: Pupils equal round and reactive. Extraocular motions intact. No scleral icterus. No injection or drainage. ENT: Nose without bleeding, purulent drainage or septal hematoma. Throat without erythema, tonsillar hypertrophy or exudate. Uvula midline. Airway patent. NECK: Trachea midline. No JVD or lymphadenopathy. Supple, nontender, no meningeal signs. CARDIOVASCULAR: Regular rate and rhythm without murmurs, gallops, or rubs. RESPIRATORY: Clear to auscultation. Breath sounds equal bilaterally. No wheezes , rales, or rhonchi. GASTROINTESTINAL: Abdomen soft, non-tender, nondistended. No hepato-splenomegaly , or palpable masses. No guarding. MUSCULOSKELETAL: Extremities without clubbing, cyanosis, or edema. No joint tenderness, effusion, or edema noted. No calf tenderness. Negative Homans sign bilaterally. NEUROLOGICAL: Awake and alert. Cranial nerves II through XII intact. Motor and sensory grossly within normal limits. Five out of 5 muscle strength in all muscle groups. Normal speech. Laboratory Laboratory Tests Test 10/22/17 16:00 10/22/17 16:20 10/23/17 05:15 Urine Color YELLOW Urine Turbidity CLEAR Urine pH 6.0 Urine Specific [place] 1.019 Urine Protein NEG Urine Glucose (UA) NEG Urine Ketones NEG Urine Occult Blood NEG Urine Nitrite NEG Urine Bilirubin NEG Urine Leukocyte Esterase NEG Urine RBC 0-2 Urine WBC 9-14 Urine Squamous Epithelial Cells 0-5 Urine Bacteria MANY Microscopic Urinalysis Comment CULTURE INDICATED White Blood Count 11.3 9.6 Red Blood Count 3.69 3.58 Hemoglobin 11.9 11.1 Hematocrit 35.2 34.1 Mean Corpuscular Volume 95.4 95.2 Mean Corpuscular Hemoglobin 32.4 31.0 Mean Corpuscular Hemoglobin Concent 33.9 32.6 Red Cell Distribution Width 12.9 13.0 Platelet Count 287 288 Mean Platelet Volume 6.5 7.0 Neutrophils (%) (Auto) 75.5 61.5 Lymphocytes (%) (Auto) 10.3 19.6 Monocytes (%) (Auto) 2.6 5.7 Eosinophils (%) (Auto) 11.0 12.7 Basophils (%) (Auto) 0.6 0.5 Neutrophils # (Auto) 8.4 6.0 Lymphocytes # (Auto) 1.2 1.9 Monocytes # (Auto) 0.3 0.5 Eosinophils # (Auto) 1.2 1.2 Basophils # (Auto) 0.1 0.0 CBC Comment DIFF FINAL DIFF FINAL Differential Comment Prothrombin Time 10.2 Prothromb Time International Ratio 1.0 Activated Partial Thromboplast Time 23.8 Blood Urea Nitrogen 24 22 Creatinine 1.30 1.10 Random Glucose 119 90 Total Protein 7.4 Albumin 3.6 Calcium Level 8.5 8.8 Alkaline Phosphatase 82 Aspartate Amino Transf (AST/SGOT) 20 Alanine Aminotransferase (ALT/SGPT) 15 Total Bilirubin 0.3 Sodium Level 138 139 Potassium Level 4.2 4.2 Chloride Level 105 107 Carbon Dioxide Level 28.0 25.1 Anion Gap 5 7 Estimat Glomerular Filtration Rate 39 47 Total Creatine Kinase 58 Troponin I LESS THAN 0.02 Date/Time Source Procedure Growth Status 10/22/17 16:00 Urine Clean Catch Urine Culture Pending Received Result Diagram: 10/23/17 0515 10/23/17 0515 Imaging Last Impressions Head CT 10/22/17 1543 Signed Impressions: Service Date/Time: Sunday, October 22, 2017 17:39 - CONCLUSION: 1. Senescent changes without acute intracranial abnormality. Hong De Leon MD Chest X-Ray 10/22/17 1543 Signed Impressions: Service Date/Time: Sunday, October 22, 2017 16:05 - CONCLUSION: The lungs are clear. Ezio Levy MD CT Angiography 10/22/17 0000 Signed Impressions: Service Date/Time: Sunday, October 22, 2017 17:45 - CONCLUSION: 1. No CT evidence for pulmonary artery embolism. 2. Mild scarring at the lung bases and right lung apex. 3. Otherwise, unremarkable CT examination of the chest. Hong De Leon MD Caprini VTE Risk Assessment Manjeetrinfay VTE Risk Assessment: No/Low Risk (score <= 1) Caprini Risk Assessment Model Point Value = 1 Point Value = 2 Point Value = 3 Point Value = 5 Age 41-60 Minor surgery BMI > 25 kg/m2 Swollen legs Varicose veins or History of unexplained or recurrent spontaneous Oral contraceptives or hormone replacement Sepsis (< 1 month) Serious lung disease, including pneumonia (< 1 month) Abnormal pulmonary function Acute myocardial infarction Congestive heart failure (< 1 month) History of inflammatory bowel disease Medical patient at bed rest Age 61-74 Arthroscopic surgery Major open surgery (> 45 min) Laparoscopic surgery (> 45 min) Malignancy Confined to bed (> 72 hours) Immobilizing plaster cast Central venous access Age >= 75 History of VTE Family history of VTE Factor V Leiden Prothrombin [id number] Lupus anticoagulant Anticardiolipin antibodies Elevated serum homocysteine Heparin-induced thrombocytopenia Other congenital or acquired thrombophilia Stroke (< 1 month) Elective arthroplasty Hip, pelvis, or leg fracture Acute spinal cord injury (< 1 month) Prophylaxis Regimen Total Risk Factor Score Risk Level Prophylaxis Regimen 0-1 Low Early ambulation 2 Moderate Order ONE of the following: *Sequential Compression Device (SCD) *Heparin 5000 units SQ BID 3-4 Higher Order ONE of the following medications: *Heparin 5000 units SQ TID *Enoxaparin/Lovenox 40 mg SQ daily (WT < 150 kg, CrCl > 30 mL/min) *Enoxaparin/Lovenox 30 mg SQ daily (WT < 150 kg, CrCl > 10-29 mL/min) *Enoxaparin/Lovenox 30 mg SQ BID (WT < 150 kg, CrCl > 30 mL/min) AND/OR *Sequential Compression Device (SCD) 5 or more Highest Order ONE of the following medications: *Heparin 5000 units SQ TID (Preferred with Epidurals) *Enoxaparin/Lovenox 40 mg SQ daily (WT < 150 kg, CrCl > 30 mL/min) *Enoxaparin/Lovenox 30 mg SQ daily (WT < 150 kg, CrCl > 10-29 mL/min) *Enoxaparin/Lovenox 30 mg SQ BID (WT < 150 kg, CrCl > 30 mL/min) AND *Sequential Compression Device (SCD) Assessment and Plan Problem List: (1) Syncope ICD Code: R55 - Syncope and collapse Status: Acute Plan: Probably medication related. Patient took Mucinex DM the morning of the episode. UTI may be contributing but she is asymptomatic from that standpoint. She is completely asymptomatic currently. Reassuring exam Head CT unremarkable Telemetry so far show sinus rhythm with no arrhythmias. Continue to monitor for a total 24 hours Follow-up on 2-D echocardiogram and carotid ultrasound (2) Urinary tract infection ICD Code: N39.0 - Urinary tract infection, site not specified Status: Acute Plan: Patient was started on Macrobid from the ED. Continue the same. No history of resistant UTI. Plan for short course of antibiotics post discharge. Follow urine culture. Assessment and Plan Continue to monitor the patient on telemetry. Follow-up on echocardiogram and carotid ultrasound. Possible discharge later today. Problem Qualifiers (1) Syncope: Qualified Codes: R55 - Syncope and collapse (2) Urinary tract infection: Qualified Codes: N39.0 - Urinary tract infection, site not specified Blade Chairez MD Oct 23, 2017 09:24
[2017-10-23] MEDS ORDERED: NITR100C4 PO (11:01)
--- NOTE | 2017-10-23 11:01 | HHI.DCPOC ---
Discharge Care Plan Diagnosis: (1) Syncope (2) Urinary tract infection Goals to Promote Your Health * To prevent worsening of your condition and complications * To maintain your health at the optimal level Directions to Meet Your Goals Take your medications as prescribed Follow your dietary instruction Follow activity as directed Keep your appointments as scheduled Take your immunizations and boosters as scheduled If your symptoms worsen call your PCP, if no PCP go to Urgent Care Center or Emergency Room Smoking is Dangerous to Your Health. Avoid second hand smoke Call the 24-hour hour crisis hotline for domestic abuse at Blade Chairez MD Oct 23, 2017 11:01
[2017-10-23] MEDS: ASPIRIN 81 MG CHEW TAB CHEW SCH (11:12)
[2017-10-23] MEDS: LOSARTAN 50 MG TAB PO SCH (11:12)
--- NOTE | 2017-10-23 11:17 | RADRPT ---
EXAM DATE/TIME: 10/23/2017 09:54 [facility] COMPARISON: No previous studies available for comparison. EXTERNAL COMPARISON : [facility], US CAROTID ARTERIES, January 16, 2017 INDICATIONS : Syncope. MEDICAL HISTORY : Hypertension. Hypercholesterolemia. Chronic obstructive pulmonary disease. Glaucoma. Anticoagulant th erapy. Asthma. GERD. Urinary tract infection. Arthritis. NonHodgkins lymphoma, Breast. SURGICAL HISTORY : Tonsillectomy. Mastectomy, bilateral. Dilation and curretage. ENCOUNTER: Initial ACUITY: 1 day PAIN SCORE: 110 LOCATION: Bilateral neck PEAK SYSTOLIC VELOCITIES (cm/sec): ICA/CCA RATIO: Right: 2.2 Left: 1.3 ICA: Right: 148 Left: 78 CCA: Right: 68 Left: 58 ECA: Right: 279 Left: 127 VERTEBRAL: Right: 57 antegrade Left: 43 antegrade Elevated flow velocities and ICA/CCA ratios have been found to correlate with increased degrees of vessel stenosis, calculated as percentage of diameter relative to a normal segment of distal ICA/CCA FINDINGS: RIGHT CAROTID: Moderate eccentric calcific plaquing. Mild flow velocity acceleration across the carotid bifurcation likely indicative of stenosis on the order of 50-69%. LEFT CAROTID: Moderate eccentric calcific plaquing without definite objective evidence of significant stenosis VERTEBRAL ARTERIES: Antegrade flow is seen in both vertebral arteries. MISCELLANEOUS: None. 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 Objective measurements indicate at leas t moderate stenosis on the right. Further evaluation with CTA examination of the arch and carotids is suggested Demetrio Orellana MD on October 23, 2017 at 11:12 Board Certified Radiologist. This report was verified electronically.
[2017-10-23] MEDS: ACETAMINOPHEN 325 MG TAB PO PRN (12:52)
[2017-10-23] MEDS ORDERED: GADODIAMIDE PF 287 MG/ML 20 ML VIAL (for RAD MRI) IVCONTRAST ONE (17:27)
[2017-10-23] MEDS ORDERED: cloNIDine HCL 0.1 MG TAB PO PRN (17:45)
--- NOTE | 2017-10-23 17:58 | RADRPT ---
EXAM DATE/TIME: 10/23/2017 17:16 [facility] COMPARISON: No previous studies available for comparison. INDICATIONS : Dizziness. CONTRAST: 20 cc Omniscan (gadodiamide) IV MEDICAL HISTORY : Carcinoma, breast. Hypertension. SURGICAL HISTORY : Tonsillectomy. Mastectomy, bilateral. ENCOUNTER: Subsequent ACUITY: 2 day PAIN SCORE: 0/10 LOCATION: head. TECHNIQUE: Multiplanar, multisequence MRI of the brain was performed both prior to and following the administrat ion of paramagnetic contrast. FINDINGS: CEREBRUM: The ventricles are normal for age. No evidence of midline shift, mass lesion, hemorrhage or acute in farction. No extraaxial fluid collections are seen. The pituitary gland and suprasellar cistern are normal in configuration. WHITE MATTER: No significant signal abnormalities are seen in the white matter. POSTERIOR FOSSA: The cerebellum and brainstem are intact. The 4th ventricle is midline. The cerebellopontine angle is unremarkable. The cerebellar tonsils are normal in position. DIFFUSION IMAGING: No focal areas of restricted diffusion are seen. No evidence of acute infarction. EXTRACRANIAL: There is mild mucosal thickening in occasional facial sinuses and minimal fluid in the mastoids. POST-CONTRAST: No abnormal areas of parenchymal or dural enhancement. No evidence of blood-brain barrier breakdown. CONCLUSION: No acute intracranial findings. Demetrio Orellana MD on October 23, 2017 at 17:53 Board Certified Radiologist. This report was verified electronically.
--- NOTE | 2017-10-23 17:59 | RADRPT ---
EXAM DATE/TIME: 10/23/2017 17:16 [facility] COMPARISON: No previous studies available for comparison. INDICATIONS : Stenosis. CONTRAST: 20 cc Omniscan (gadodiamide) IV MEDICAL HISTORY : Carcinoma, breast. Hypertension. SURGICAL HISTORY : Tonsillectomy. Mastectomy, bilateral. ENCOUNTER: Subsequent ACUITY: 2 day PAIN SCORE: 0/10 LOCATION: neck Percent stenosis is calculated using the diameter of the stenotic region over the diameter of the nor mal distal internal carotid artery. TECHNIQUE: Bolus infused MRA of the extracranial circulation was performed using a neurovascular coil. Post pro cessing was performed including rotating subvolume maximum intensity projections of each carotid lana ry, rotating full volume maximum intensity projections of both carotid arteries, sagittal and coronal sliding thin slab reformations of each carotid artery, and left oblique sliding thin slab reformatio n through the aortic arch to include the origin of the arch branch vessels. FINDINGS: AORTIC ARCH: There is a three vessel origin of the great vessels from the aorta. No evidence of ostial narrowing. RIGHT CAROTID: Slight eccentric plaque involving the carotid bulb. No significant degree of stenosis. Right ICA is w idely patent to the skull base. LEFT CAROTID: The common carotid artery is intact. The carotid bulb has a normal configuration without ulceration or narrowing. The internal carotid artery lumen is smooth without stenosis. The external carotid ar bakari is intact. VERTEBRALS: The vertebral arteries have a symmetric diameter. No stenotic lesions are seen. CONCLUSION: No carotid stenosis. Demetrio Orellana MD on October 23, 2017 at 17:56 Board Certified Radiologist. This report was verified electronically.
--- NOTE | 2017-10-23 18:44 | EKG ---
Date Performed: 10/22/2017 Time Performed: 15:53:41 PTAGE: 82 years EKG: Sinus rhythm NORMAL ECG Since the prior tracing, there has been no significant change PREVIOUS TRACING : 09/10/2016 12.10 DOCTOR: Genny Gan Interpretating Date/Time 10/23/2017 18:42:02
--- NOTE | 2017-10-23 20:32 | ECHRPT ---
Indication: syncope CONCLUSIONS The left ventricular systolic function is normal with an estimated ejection fraction in the range of 55-60%. Doppler parameters are consistent with impaired left ventricular relaxtion (grade 1 diastolic dysfun ction). Trace mitral valve regurgitation. There is mild tricuspid valve regurgitation. BP: / HR: Rhythm: MEASUREMENTS (Male / Female) Normal Values Technical Quality:Fair 2D ECHO LV Diastolic Diameter PLAX 3.3 cm 4.2 - 5.9 / 3.9 - 5.3 cm LV Systolic Diameter PLAX 2.6 cm IVS Diastolic Thickness 1.1 cm 0.6 - 1.0 / 0.6 - 0.9 cm LVPW Diastolic Thickness 0.8 cm 0.6 - 1.0 / 0.6 - 0.9 cm LV Relative Wall Thickness 0.6 RV Internal Dim ED PLAX 2.0 cm M-MODE Aortic Root Diameter MM 2.6 cm LA Systolic Diameter MM 2.5 cm LA Ao Ratio MM 1.0 AV Cusp Separation MM 1.6 cm DOPPLER Mitral E Point Velocity 54.8 cm/s Mitral A Point Velocity 77.0 cm/s Mitral E to A Ratio 0.7 LV E' Lateral Velocity 4.4 cm/s Mitral E to LV E' Lateral Ratio 12.5 LV E' Septal Velocity 5.4 cm/s Mitral E to LV E' Septal Ratio 10.2 TR Peak Velocity 270.0 cm/s TR Peak Gradient 29.2 mmHg Right Atrial Pressure 10.0 mmHg Pulmonary Artery Systolic Pressu 39.2 mmHg Right Ventricular Systolic Press 39.2 mmHg FINDINGS LEFT VENTRICLE Normal left ventricular size. The left ventricular systolic function is normal with an estimated ejection fraction in the range of 55-60%. Doppler parameters are consistent with impaired left ventricular relaxtion (grade 1 diastolic dysfun ction). RIGHT VENTRICLE Normal right ventricular size and systolic function. LEFT ATRIUM The left atrial size is normal. RIGHT ATRIUM The right atrial size is normal. ATRIAL SEPTUM Normal atrial septal thickness AORTA The aortic root and proximal ascending aorta are normal in size on limited imaging. MITRAL VALVE Structurally normal mitral valve. No mitral valve stenosis. Trace mitral valve regurgitation. Mild mitral annular calcification. AORTIC VALVE Grossly normal aortic valve. No aortic valve stenosis or regurgitation. TRICUSPID VALVE Structurally normal tricuspid valve. The estimated pulmonary arterial pressure is 39.2 mmHg. There is mild tricuspid valve regurgitation. PULMONARY VALVE No pulmonary valve regurgitation or stenosis. VESSELS The inferior vena cava is normal in size. PERICARDIUM No pericardial effusion. Arnav Crockett DO (Electronically Signed) Final Date:23 October 2017 20:31
[2017-10-24] VITALS: BP 164/69; PULSE 82; RESP 16; TEMP 96.9; O2SAT 97
[2017-10-24 04:00] VITALS: BP 145/88; PULSE 83; RESP 16; TEMP 97.4; O2SAT 95
[2017-10-24 08:00] VITALS: PULSE 91
[2017-10-24] MEDS ORDERED: MULTIVITAMINS/MINERALS THERAPEUTIC TAB PO SCH (09:00)
[2017-10-24 09:12] VITALS: BP 141/73; PULSE 91; RESP 16; TEMP 97.1; O2SAT 97
[2017-10-24] MEDS ORDERED: AMLO5TAB2 PO (09:33)
--- NOTE | 2017-10-24 09:34 | HHI.PR ---
Subjective Remarks Patient reports she is feeling great. No lightheadedness, or headache. No chest pain. She wants to go home. Neck MRA without carotid stenosis. Objective Vitals Vital Signs Date Time Temp Pulse Resp B/P (MAP) Pulse Ox O2 Delivery O2 Flow Rate FiO2 10/24/17 09:12 97.1 91 16 141/73 (95) 97 10/24/17 04:00 97.4 83 16 145/88 (107) 95 10/24/17 00:00 96.9 82 16 164/69 (100) 97 10/23/17 21:00 82 10/23/17 20:00 97.1 82 16 169/77 (107) 94 10/23/17 16:00 97.1 80 20 169/76 (107) 96 10/23/17 11:56 97.1 77 20 164/76 (105) 98 I/O 10/23/17 10/23/17 10/23/17 10/24/17 10/24/17 10/24/17 07:00 15:00 23:00 07:00 15:00 23:00 Intake Total 450 ml 1540 ml 800 ml Balance 450 ml 1540 ml 800 ml Intake Oral 450 ml 1540 ml 800 ml # Voids 3 3 1 3 # Bowel Movements 0 2 0 Result Diagram: 10/23/17 0515 10/23/17 0515 Objective Remarks GENERAL: This is a well-nourished, well-developed patient, in no apparent distress. CARDIOVASCULAR: Normal rate and regular rhythm without murmurs, gallops, or rubs. RESPIRATORY: Good respiratory efforts. Breath sounds equal and clear to auscultation bilaterally. GASTROINTESTINAL: Abdomen soft, non-tender, non-distended. Normal active bowel sounds MUSCULOSKELETAL: Extremities without cyanosis, or edema. NEURO: Alert & Oriented x4 to person, place, time, situation. Moves all ext x4 PSYCH: Appropriate mood and affect. A/P Problem List: (1) Syncope ICD Code: R55 - Syncope and collapse Status: Acute Plan: Probably medication related. Patient took Mucinex DM the morning of the episode. UTI may be contributing but she is asymptomatic from that standpoint. She is completely asymptomatic currently. Reassuring exam Carotid ultrasound was concerning for carotid artery stenosis. Neck MRA and brain MRI was obtain, all unremarkable. Telemetry revealed normal sinus rhythm. 2-D echocardiogram unremarkable except for grade 1 diastolic dysfunction. Patient deemed stable for discharge. (2) Urinary tract infection ICD Code: N39.0 - Urinary tract infection, site not specified Status: Acute Plan: Patient was started on Macrobid from the ED. No history of resistant UTI. Urine grew Escherichia coli. Short course of antibiotics post discharge. (3) Hypertension ICD Code: I10 - Essential (primary) hypertension Plan: Patient's blood pressure control is suboptimal. She reports it has been more elevated for the past 6 months. Discuss need for better blood pressure control with the patient. She was started on amlodipine and advised to follow-up outpatient with her PCP for further titration as needed. Discharge Planning Discharge home in good condition Diet: Heart healthy Activity: Regular as tolerated Meds: Per med rec Follow-up with: PCP Problem Qualifiers (1) Syncope: Qualified Codes: R55 - Syncope and collapse (2) Urinary tract infection: Qualified Codes: N39.0 - Urinary tract infection, site not specified Blade Chairez MD Oct 24, 2017 09:34
[2017-10-24] MEDS: NITROFURANTOIN MONOHYD MACROCR 100 MG CAP PO SCH (10:07)
[2017-10-24] MEDS: HEPARIN SODIUM - SQ 10,000 UNITS/ML VIAL SQ SCH (10:07)
[2017-10-24] MEDS: LOSARTAN 50 MG TAB PO SCH (10:08)
[2017-10-24] MEDS: ASPIRIN 81 MG CHEW TAB CHEW SCH (10:09)
[2017-10-24] MEDS: SODIUM CHLORIDE 0.9% FLUSH 10 ML FLUSH IV FLUSH SCH (10:09)
== END 2017-10-24 12:08 | disposition home or self-care (01) ==
LOC: PHED 15:20 → PHEDA 19:26 → PH3A 22:01
PROVIDERS: ADMIT Family Medicine; ATTEND Family Medicine
DX: R55 Syncope and collapse (principal); N39.0 Urinary tract infection, site not specified; B96.20 Unspecified Escherichia coli [E. coli] as the cause of diseases classified elsewhere; R51 Headache; R42 Dizziness and giddiness; I10 Essential (primary) hypertension; E78.00 Pure hypercholesterolemia, unspecified; J44.9 Chronic obstructive pulmonary disease, unspecified; K21.9 Gastro-esophageal reflux disease without esophagitis; M46.92 Unspecified inflammatory spondylopathy, cervical region; R40.2430 Glasgow coma scale score 3-8, unspecified time; H40.9 Unspecified glaucoma; H35.30 Unspecified macular degeneration; Z85.3 Personal history of malignant neoplasm of breast; Z85.72 Personal history of non-Hodgkin lymphomas; Z92.3 Personal history of irradiation; Z79.899 Other long term (current) drug therapy; Z79.82 Long term (current) use of aspirin
CPT/HCPCS: 70450; 70548; 70553; 71045; 71275; 80048; 80053; 81001; 82550; 84484; 85025; 85610; 85730; 87077; 87086; 87186; 93005; 93306; 93880; 96372; 99285; A9579; G0378; J1644; Q9967

== ENCOUNTER → 2018-01-11 | Outpatient (CLI) | payer MEDICARE ==
[~2018-01-11] MED LIST changes: +ALPR.25 PO; +AMLO5TAB2 PO; -ASPI1TAB69 PO; +ASPI81CH6 CHEW; -CALTTAB PO; -ICAPCAP PO; +LATA0.002 EACH EYE; -MACR100C2 PO; +NITR100C4 PO; +OCUVTAB4 PO; -OMEP20TA93 PO
[2018-01-11 10:34] LABS: HEMATOCRIT 38.4 % (35.0-46.0); HEMOGLOBIN 12.9 GM/DL (11.6-15.3); MEAN CELL VOLUME 97.1 FL (80.0-100.0); MEAN CORPUSCULAR HEMOGLOBIN 32.7 PG (27.0-34.0); MEAN CORPUSCULAR HGB CONC 33.6 % (32.0-36.0); MEAN PLATELET VOLUME 6.6 FL (7.0-11.0); PLATELET COUNT 288 TH/MM3 (150-450); RED BLOOD COUNT 3.96 MIL/MM3 (4.00-5.30); RED CELL DISTRIBUTION WIDTH 14.4 % (11.6-17.2); WHITE BLOOD COUNT 7.8 TH/MM3 (4.0-11.0)
[2018-01-11 11:11] LABS: AST (GOT) 23 U/L (15-37); BICARBONATE 26.4 MEQ/L (21.0-32.0); BLOOD UREA NITROGEN 20 MG/DL (7-18); CALCIUM 9.2 MG/DL (8.5-10.1); CHLORIDE 104 MEQ/L (98-107); CHOLESTEROL 258 MG/DL (120-200); CREATININE 1.18 MG/DL (0.50-1.00); GLOMERULAR FILTRATION RATE 44 ML/MIN (>89); GLUCOSE,FASTING 72 MG/DL (74-99); SODIUM (NA) 139 MEQ/L (136-145); TRIGLYCERIDES 114 MG/DL (42-150)
[2018-01-11 11:17] LABS: ALKALINE PHOSPHATASE 72 U/L (45-117); ALT (GPT) 18 U/L (10-53); CHOLESTEROL/ HDL RATIO 4.29 RATIO; HDL CHOLESTEROL 60.1 MG/DL (40.0-60.0); LDL CHOLESTEROL 175 MG/DL (0-99); LDL CHOLESTEROL DIRECT 181 MG/DL (0-99); TOTAL BILIRUBIN ADULT 0.4 MG/DL (0.2-1.0); TOTAL PROTEIN 7.4 GM/DL (6.4-8.2)
== END ==
LOC: PLAB 08:18
PROVIDERS: ATTEND Family Medicine
DX: I25.10 Atherosclerotic heart disease of native coronary artery without angina pectoris (principal); I12.9 Hypertensive chronic kidney disease with stage 1 through stage 4 chronic kidney disease, or unspecified chronic kidney disease; N18.3 Chronic kidney disease, stage 3 (moderate); E78.2 Mixed hyperlipidemia
CPT/HCPCS: 36415; 80053; 80061; 83721; 85027

== ENCOUNTER 2018-10-28 11:33 | Inpatient (IN) ==
[2018-10-28] MEDS ORDERED: Sodium Chlor 0.9% Inj 500 ML IV.SIG ONE (13:06)
[2018-10-28] MEDS ORDERED: Acetaminophen 325 MG Tablet PO ONE (13:08)
[2018-10-28 13:23] LABS: Baso # (Auto) 0.1 th/mm3 (0.0-0.2); Baso % (Auto) 0.8 % (0.0-2.0); Eos # (Auto) 0.8 th/mm3 (0.0-0.4); Eos % (Auto) 10.3 % (0.0-4.0); Hematocrit 39.5 % (35.0-46.0); Hemoglobin 13.4 gm/dL (11.6-15.3); Lymph # (Auto) 2.1 th/mm3 (1.0-4.8); Lymph % (Auto) 26.4 % (9.0-44.0); Mean Corpuscular Hemoglobin 33.3 pg (27.0-34.0); Mean Corpuscular Volume 97.9 fL (80.0-100.0); Mean Platelet Volume 6.4 fL (7.0-11.0); Mono # (Auto) 0.4 th/mm3 (0.0-0.9); Mono % (Auto) 5.5 % (0.0-8.0); Neut # (Auto) 4.6 th/mm3 (1.8-7.7); Platelet Count 322 th/mm3 (150-450); Red Blood Count 4.04 mil/mm3 (4.00-5.30); Red Cell Distribution Width 13.7 % (11.6-17.2); White Blood Count 8.1 th/mm3 (4.0-11.0)
--- NOTE | 2018-10-28 13:32 | ED ---
HPI General Chief Complaint: Neuro Symptoms/Deficit Stated Complaint: Headache/Numbness/Dr Sent Time Seen by Provider: 10/28/18 12:57 Source: patient Mode of arrival: ambulatory Limitations: no limitations History of Present Illness HPI Narrative: 83-year-old female with PMH of CHF, HTN, stroke, on Coumadin presents the ED for evaluation of neuro symptoms and headache. 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 This was onset around 11 :10 AM, lasted for an hour and is now resolved On presentation patient states that she feels like she has a migraine headache. Headache is described as squeezing, located over the left eye, 5/10, similar to previous episodes of headache. Patient denies associated blurred vision, weakness, dizziness. She denies chest pain, palpitations, shortness of breath, abdominal pain, nausea, dysuria. She states that prior to the symptoms she was feeling well. She states that she normally would treat this kind of headache with Tylenol. She has been compliant with Coumadin daily. She states that she was seen in the ED a few days ago and her INR was subtherapeutic. She was in the cardiologists office for a follow up appointment and not an acute problem. No treatment attempted before arrival. Related Data Home Medications Medication Instructions Recorded Confirmed acetaminophen [Tylenol] 650 mg PO Q6H PRN 10/04/18 10/28/18 alprazolam [Xanax] 0.25 mg PO BID PRN 10/04/18 10/28/18 biotin 2,500 mcg PO DAILY 10/04/18 10/28/18 fluticasone-vilanterol [Breo 1 inh INHALATION DAILY 10/04/18 10/28/18 Ellipta] losartan 50 mg PO DAILY 10/04/18 10/28/18 bimatoprost [Lumigan] 1 drp OPHTHALMIC (EYE) QPM 10/07/18 10/28/18 vitamins A,C,E-njze-btezac [ICaps 1 cap PO BID 10/07/18 10/28/18 AREDS] warfarin 5 mg PO DAILY 10/29/18 10/29/18 Previous Rx's Medication Instructions Recorded amlodipine [Norvasc] 10 mg PO DAILY #60 tab 10/08/18 Allergies Allergy/AdvReac Type Severity Reaction Status Date / Time atorvastatin Allergy Severe Anxiety Verified 10/25/18 13:13 ciprofloxacin Allergy Severe Rash Verified 10/25/18 13:13 codeine Allergy Severe Hives/itchi Verified 10/25/18 13:13 ng ezetimibe Allergy Severe ALLERGY TO Verified 10/25/18 13:13 VYTORIN : EZETIMIBE/SIMVASTATIN pitavastatin Allergy Severe "Made me Verified 10/25/18 13:13 feel crazy" simvastatin Allergy Severe ALLERGY TO Verified 10/25/18 13:13 VYTORIN: EZETIMIBE/SIMVASTATIN: ALL TO CRESTOR brimonidine Allergy Intermediate INCREASES Verified 10/25/18 13:13 BP niacin Allergy Intermediate RASH Verified 10/25/18 13:13 sulfamethoxazole Allergy Intermediate HIVES Verified 10/25/18 13:13 timolol Allergy Intermediate INCREASES Verified 10/25/18 13:13 BP trimethoprim Allergy Intermediate HIVES Verified 10/25/18 13:13 latanoprost Allergy Unknown INCREASED Verified 10/25/18 13:13 BP Taolqqj-Qom-Her Reductase AdvReac Severe Muscle and Verified 10/25/18 13:13 Inhibitor joint pain pregabalin AdvReac Unknown UNABLE TO Verified 10/25/18 13:13 FUNCTION; MAKES HER GOOFY Review of Systems ROS: all other systems reviewed are negative PMFSH Surgical History Surgical History H/O mastectomy (Acute) History of tonsillectomy and adenoidectomy (Acute) Family History Family History Other Myocardial infarction Social History Social History Substance History: No History of Abuse Second Hand Smoke Exposure: No Smoking Status: Never smoker How Often Do You Have a Drink Containing Alcohol: 2 to 4 times a month Recent Travel in [facility] within the Last 8 Weeks: No Recent Out of Country Travel within the Last 8 Weeks: No Immunization History Tetanus Immunization: <5 Years Exam Narrative Exam Narrative: GENERAL: Well-nourished, well-developed, pleasant white female in no acute distress. SKIN: Focused skin assessment warm/dry. HEAD: Atraumatic. Normocephalic. EYES: Pupils equal and round. No scleral icterus. No injection or drainage. ENT: No nasal bleeding or discharge. Mucous membranes pink and moist. NECK: Trachea midline. No JVD. CARDIOVASCULAR: Regular rate and rhythm. No murmur appreciated. RESPIRATORY: No accessory muscle use. Clear to auscultation. Breath sounds equal bilaterally. GASTROINTESTINAL: Abdomen soft, non-tender, nondistended. Hepatic and splenic margins not palpable. MUSCULOSKELETAL: No obvious deformities. No clubbing. No cyanosis. No edema. NEUROLOGICAL: Awake and alert. No obvious cranial nerve deficits. Motor grossly within normal limits. Normal speech. PSYCHIATRIC: Appropriate mood and affect; insight and judgment normal. Course Initial Documented Vital Signs Temperature 98.1 F 10/28/18 12:00 Pulse Rate 80 10/28/18 12:00 Respiratory Rate 18 10/28/18 12:00 Blood Pressure 163/80 H 10/28/18 12:00 Pulse Oximetry 97 10/28/18 12:00 Last Documented Vital Signs Temperature 97.4 F L 10/29/18 12:00 Pulse Rate 89 10/29/18 12:00 Respiratory Rate 18 10/29/18 12:00 Blood Pressure 186/81 H 10/29/18 12:00 Pulse Oximetry 99 10/29/18 12:00 Medical Decision Making ROMARIO Attestation ROMARIO supervised visit: Yes Attestation: I, Dr. Miller, have reviewed the advance practice practitioner's documentation and am in agreement, met with the patient face to face, made the diagnosis, and the medical decision making was done by me. *My assessment and Findings: Acute CVA MDM Narrative Medical decision making narrative: 83-year-old female with PMH of HLD, CHF, CVA on 10/05/18 presents to the ED for evaluation of right-sided perioral tingling with right arm weakness. Onset around 11:00, resolved on presentation. Patient is complaining of a 5/10 left-sided headache on arrival. No focal neuro deficits. Patient was administered Tylenol.On recheck patient reports resolution of her headache symptoms. INR 2.5. CT brain says possible new area of subtle edema in the right parietal occipital region compared to previous per radiology read. I discussed the patient's and CT findings with Dr. Tena, neurology. He recommends MRI/MRA of the brain. MRI shows no area of restricted diffusion right posterior parietal region without hemorrhage suspicious for an embolic process involving the right hemisphere. I discussed these findings with Dr. Tena. He recommends admission, PASTORA, neuro checks. Discussed the findings with the patient who is agreeable to admission. I spoke with Dr. Carranza who agrees to accept the patient to the medicine service. Please see medicine and neurology notes for disposition. Medical Screen Exam Complete: Yes Emergency Medical Condition: Yes Differential Diagnosis Differential Diagnosis: Cephalgia versus migraine versus CVA versus other Lab Data Result diagrams: 10/29/18 05:24 10/29/18 05:24 Lab Results 10/28/18 10/28/18 10/28/18 Range/Units 13:10 13:10 13:10 WBC 8.1 (4.0-11.0) th/mm3 RBC 4.04 (4.00-5.30) mil/mm3 Hgb 13.4 (11.6-15.3) gm/dL Hct 39.5 (35.0-46.0) % MCV 97.9 (80.0-100.0) fL MCH 33.3 (27.0-34.0) pg MCHC 34.0 (32.0-36.0) % RDW 13.7 (11.6-17.2) % Plt Count 322 (150-450) th/mm3 MPV 6.4 L (7.0-11.0) fL Neut % (Auto) 57.0 (16.0-70.0) % Lymph % (Auto) 26.4 (9.0-44.0) % [place] % (Auto) 5.5 (0.0-8.0) % Eos % (Auto) 10.3 H (0.0-4.0) % Baso % (Auto) 0.8 (0.0-2.0) % Neut # (Auto) 4.6 (1.8-7.7) th/mm3 Lymph # (Auto) 2.1 (1.0-4.8) th/mm3 [place] # (Auto) 0.4 (0.0-0.9) th/mm3 Eos # (Auto) 0.8 H (0.0-0.4) th/mm3 Baso # (Auto) 0.1 (0.0-0.2) th/mm3 WBC Differential . Differential Comment Auto diff final PT 25.6 H (9.8-11.6) sec INR 2.5 Ratio Sodium 138 (136-145) meq/L Potassium 4.0 (3.5-5.1) meq/L Chloride 105 (98-107) meq/L Carbon Dioxide 26.0 (21.0-32.0) meq/L Anion Gap 7 (5-15) meq/L BUN 19 H (7-18) mg/dL Creatinine 1.11 H (0.50-1.00) mg/dL Estimated GFR 47 L (>89) mL/min POC Glucose (68-110) mg/dl Random Glucose 108 H (74-106) mg/dL Calcium 8.9 (8.5-10.1) mg/dL Total Bilirubin 0.3 (0.2-1.0) mg/dL AST 21 (15-37) U/L ALT 19 (10-53) U/L Alkaline Phosphatase 81 (45-117) U/L Troponin I (0.02-0.05) ng/mL Total Protein 8.1 D (6.4-8.2) g/dL Albumin 4.3 (3.4-5.0) g/dL 10/28/18 10/29/18 10/29/18 Range/Units 13:10 00:40 05:24 WBC (4.0-11.0) th/mm3 RBC (4.00-5.30) mil/mm3 Hgb (11.6-15.3) gm/dL Hct (35.0-46.0) % MCV (80.0-100.0) fL MCH (27.0-34.0) pg MCHC (32.0-36.0) % RDW (11.6-17.2) % Plt Count (150-450) th/mm3 MPV (7.0-11.0) fL Neut % (Auto) (16.0-70.0) % Lymph % (Auto) (9.0-44.0) % [place] % (Auto) (0.0-8.0) % Eos % (Auto) (0.0-4.0) % Baso % (Auto) (0.0-2.0) % Neut # (Auto) (1.8-7.7) th/mm3 Lymph # (Auto) (1.0-4.8) th/mm3 [place] # (Auto) (0.0-0.9) th/mm3 Eos # (Auto) (0.0-0.4) th/mm3 Baso # (Auto) (0.0-0.2) th/mm3 WBC Differential Differential Comment PT 33.3 H (9.8-11.6) sec INR 3.3 Ratio Sodium (136-145) meq/L Potassium (3.5-5.1) meq/L Chloride (98-107) meq/L Carbon Dioxide (21.0-32.0) meq/L Anion Gap (5-15) meq/L BUN (7-18) mg/dL Creatinine (0.50-1.00) mg/dL Estimated GFR (>89) mL/min POC Glucose (68-110) mg/dl Random Glucose (74-106) mg/dL Calcium (8.5-10.1) mg/dL Total Bilirubin (0.2-1.0) mg/dL AST (15-37) U/L ALT (10-53) U/L Alkaline Phosphatase (45-117) U/L Troponin I Less than 0.02 L Less than 0.02 L (0.02-0.05) ng/mL Total Protein (6.4-8.2) g/dL Albumin (3.4-5.0) g/dL 10/29/18 10/29/18 10/29/18 Range/Units 05:24 05:24 12:26 WBC 6.6 (4.0-11.0) th/mm3 RBC 3.39 L (4.00-5.30) mil/mm3 Hgb 11.3 L D (11.6-15.3) gm/dL Hct 32.7 L (35.0-46.0) % MCV 96.4 (80.0-100.0) fL MCH 33.2 (27.0-34.0) pg MCHC 34.5 (32.0-36.0) % RDW 13.4 (11.6-17.2) % Plt Count 284 (150-450) th/mm3 MPV 6.6 L (7.0-11.0) fL Neut % (Auto) 47.6 (16.0-70.0) % Lymph % (Auto) 30.4 (9.0-44.0) % [place] % (Auto) 7.7 (0.0-8.0) % Eos % (Auto) 13.6 H (0.0-4.0) % Baso % (Auto) 0.7 (0.0-2.0) % Neut # (Auto) 3.2 (1.8-7.7) th/mm3 Lymph # (Auto) 2.0 (1.0-4.8) th/mm3 [place] # (Auto) 0.5 (0.0-0.9) th/mm3 Eos # (Auto) 0.9 H (0.0-0.4) th/mm3 Baso # (Auto) 0.0 (0.0-0.2) th/mm3 WBC Differential . Differential Comment Auto diff final PT (9.8-11.6) sec INR Ratio Sodium 143 (136-145) meq/L Potassium 4.3 (3.5-5.1) meq/L Chloride 112 H (98-107) meq/L Carbon Dioxide 25.4 (21.0-32.0) meq/L Anion Gap 6 (5-15) meq/L BUN 15 (7-18) mg/dL Creatinine 0.91 (0.50-1.00) mg/dL Estimated GFR 59 L (>89) mL/min POC Glucose 93 (68-110) mg/dl Random Glucose 83 (74-106) mg/dL Calcium 8.3 L (8.5-10.1) mg/dL Total Bilirubin 0.2 (0.2-1.0) mg/dL AST 17 (15-37) U/L ALT 15 (10-53) U/L Alkaline Phosphatase 63 (45-117) U/L Troponin I (0.02-0.05) ng/mL Total Protein 6.4 D (6.4-8.2) g/dL Albumin 3.1 L D (3.4-5.0) g/dL Imaging Data Radiologist's impression: Head CT 10/28/18 13:06 CONCLUSION: 1. Possible new area of subtle edema in the right parietal-occipital occipital region compared to previous. MRI may help in evaluation. . . Head MRI 10/28/18 13:47 CONCLUSION: 1. New area of restricted diffusion right posterior right posterior parietal region without hemorrhage 2. Evolving areas of restricted diffusion to have all but resolved high in the right centrum semiovale. 3. Findings are suspicious for an embolic process involving the right hemisphere. Head MRA 10/28/18 14:53 CONCLUSION: 1. There continues to be a focal short segment occlusion involving the right M1 /M2 junction appears to be essentially stable in its appearance compared to the recent prior CTA of the brain. 2. Otherwise, no other new or significant changes are demonstrated. ECG Data EKG Prior to Arrival: No Attestation: I personally reviewed and interpreted this ECG as follows: Interpretation: Rate 71, sinus rhythm. CT interval 172, QRS 83, QTC 398 ms. Normal axis. No acute ST changes. Reviewed by Dr. Jacques. Discharge Plan Discharge Disposition Patient Disposition: ED Admit(ED Internal Use Only) Discharge Condition Condition: Stable Discharge Order Discharge Orders: ED Use Only Admit Order (Routine); Ordered 10/28/18 Ordered By: Jaqueline Humphreys Physicians Team ED Provider: Favian Miller ED Midlevel Provider: Jaqueline Humphreys Primary Care Provider: Mark Villanueva Attending Provider: Jovanny Hdez Other Providers: Mason Lin ; Kelsie Marshall Status ED Status: Left Department Discharge Information Discharge Date/Time: 10/29/18 11:44
--- NOTE | 2018-10-28 13:40 | CT ---
EXAM DATE: 10/28/2018 1:32 PM EST AGE/SEX: 83 years / Female INDICATIONS: Episode of tingling on right side of face, now just has a headache CLINICAL DATA: This is the patient's initial encounter. Patient reports that signs and symptoms have been present for 1 day and indicates a pain score of 5/10. MEDICAL/SURGICAL HISTORY: Hypertension. Lymphoma. Carcinoma, breast. None. RADIATION DOSE: 36.96 CTDI (mGy) COMPARISON: [facility] [place], CT HEAD W/O CONTRAST, 10/25/2018. . TECHNIQUE: CT of the head without contrast. Using automated exposure control and adjustment of the mA and/or kV according to patient size, radiation dose was kept as low as reasonably achievable to ob tain optimal diagnostic quality images. DICOM format image data is available electronically for revi ew and comparison. FINDINGS: Cerebrum: There is subtle edema in the right parietal-occipital region compared to the left in nonsp ecific fashion. Ventricular size is appropriate. There is no parenchymal hemorrhage. There are no extra-axial fluid c ollections appreciated. Posterior Fossa: The cerebellum and brainstem are intact. The 4th ventricle is midline. The cerebe llopontine angle is unremarkable. The orbits and perineal sinuses visualized are unremarkable. CONCLUSION: 1. Possible new area of subtle edema in the right parietal-occipital occipital region compared to pr evious. MRI may help in evaluation. . . Electronically signed by: Axel Ohara MD Board Certified Radiologist 10/28/2018 1:39 PM EST
[2018-10-28 13:41] LABS: Albumin 4.3 g/dL (3.4-5.0); Anion Gap 7 meq/L (5-15); Aspartate Aminotransferase 21 U/L (15-37); Blood Urea Nitrogen 19 mg/dL (7-18); Calcium 8.9 mg/dL (8.5-10.1); Chloride 105 meq/L (98-107); Glomerular Filtration Rate 47 mL/min (>89); Glucose,Random 108 mg/dL (74-106); Sodium 138 meq/L (136-145)
[2018-10-28 13:44] LABS: Alanine Aminotransferase 19 U/L (10-53); Alkaline Phosphatase 81 U/L (45-117); Total Protein 8.1 g/dL (6.4-8.2)
[2018-10-28 13:48] LABS: INR 2.5 Ratio; Prothrombin Time 25.6 sec (9.8-11.6)
[2018-10-28] MEDS ORDERED: Gadobutrol PF 7.5 MMOL/7.5 ML Vial (for RAD) IV.SIG ONE (15:37)
--- NOTE | 2018-10-28 16:01 | MR ---
EXAM DATE: 10/28/2018 3:48 PM EST AGE/SEX: 83 years / Female INDICATIONS: CVA. CLINICAL DATA: This is the patient's initial encounter. Patient reports that signs and symptoms have been present for 1 day and indicates a pain score of 3/10. MEDICAL/SURGICAL HISTORY: Carcinoma, breast. Hypertension. Mastectomy, bilateral. COMPARISON: [facility], CTA HEAD W CONTRAST W 3D, 10/05/2018. . TECHNIQUE: 3D [id number] MRA was performed. Source images, multiplanar STS MIP, and 3D volum e MIP reconstructions were reviewed. FINDINGS: Today's exam is compared to the recent prior CTA of the brain. There is a focal short segment occlusi on involving the right M1/M2 junction which appears to be stable in its appearance compared to the pr ior study. There is some distal flow noted in the right middle cerebral vessels. The A1 segments are patent bilaterally. There is some mild irregularity involving the A1 segment on the right suggestive of atherosclerotic changes. The posterior cerebral arteries and anterior cerebral arteries are patent . The left middle cerebral vessels are patent. The basilar artery is patent. No definite cerebral ane urysms or AV malformation. CONCLUSION: 1. There continues to be a focal short segment occlusion involving the right M1/M2 junction appears to be essentially stable in its appearance compared to the recent prior CTA of the brain. 2. Otherwise, no other new or significant changes are demonstrated. Electronically signed by: Prasad Galvez MD Board Certified Radiologist 10/28/2018 4:00 PM EST
--- NOTE | 2018-10-28 16:08 | MR ---
EXAM DATE: 10/28/2018 3:55 PM EST AGE/SEX: 83 years / Female INDICATIONS: Cephalgia. CLINICAL DATA: This is the patient's initial encounter. Patient reports that signs and symptoms have been present for 1 day and indicates a pain score of 4/10. MEDICAL/SURGICAL HISTORY: Hypertension. Carcinoma, breast. Mastectomy, bilateral. COMPARISON: [facility] [place], MR HEAD W & W/O CONTRAST, 10/05/2018. . TECHNIQUE: Multiplanar, multisequence examination of the brain was performed without and with 5 ml Ga davist (gadobutrol) contrast as a single exam dose. FINDINGS: Cerebrum: There is restricted diffusion in the right posterior parietal region measuring approximat gaurav 2 cm without hemorrhage. This is associated with minimal mass effect. Moderate scattered periventricular white matter changes are seen in the right hemisphere silhouette w hich have the appearance of lacunar type infarctions. There is no restricted diffusion in the left he misphere Ventricular size is appropriate. There is no parenchymal hemorrhage. There is no significant mass effect. In the posterior fossa fourth ventricle is midline. The orbits and paranasal sinuses visualized are unremarkable. CONCLUSION: 1. New area of restricted diffusion right posterior right posterior parietal region without hemorrha ge 2. Evolving areas of restricted diffusion to have all but resolved high in the right centrum semiova le. 3. Findings are suspicious for an embolic process involving the right hemisphere. Electronically signed by: Axel Ohara MD Board Certified Radiologist 10/28/2018 4:06 PM EST
[2018-10-28] MEDS ORDERED: Warfarin Consult Pharmacy OTHER PRN (17:44)
[2018-10-28] MEDS ORDERED: Acetaminophen 325 MG Tablet PO PRN (17:45)
--- NOTE | 2018-10-28 18:01 | P.HPIM ---
History of Present Illness Primary Care Physician: Mark Villanueva MD Chief Complaint: Numbness and tingling History of Present Illness: The patient is an 83-year-old female with past medical history significant for CVA and hypertension who is presenting to the hospital with tingling in her face and arm. The patient said that she was at her doctor's office today when she developed tingling on the right side of her face and also developed tingling down her right arm. She also mentioned that her legs felt funny when standing. She says she was recently in the hospital in the beginning of October where she was treated for a stroke. She is currently on Coumadin. She said she came to the hospital again this past Sunday because she had an episode where she fainted. The patient is anxious about her situation and wants to know what is going on. She says her symptoms have resolved and she is feeling back to baseline. Neurology was contacted by the emergency department and further imaging including an MRI was ordered which indicated new strokes. Inpatient Certification Inpatient Certification: I certify that the inpatient services were ordered in accordance with Medicare regulations governing the order. This includes certification that hospital inpatient services are reasonable and necessary and in the case of services not specified as inpatient-only under 42 CFR 419.22(n), that they are appropriately provided as inpatient services in accordance to with the 2-midnight benchmark under 43 CFR 412.3(e) Estimated Total Length of Stay (Days): 2 Plans for Post Hospital Care: Home Review of Systems Review of Systems: all other systems reviewed are negative [facility] Medical History Medical History Glaucoma (Acute) Macular degeneration (Acute) Breast cancer (Acute) CHF (congestive heart failure) (Acute) Hyperlipidemia (Acute) Hypertension (Acute) Lymphoma (Acute) Mitral valve regurgitation (Acute) Non-Hodgkin lymphoma (Acute) Stroke (Acute) Surgical History Surgical History H/O mastectomy (Acute) History of tonsillectomy and adenoidectomy (Acute) Family History Family History Other Myocardial infarction Social History Social History Substance History: No History of Abuse Second Hand Smoke Exposure: No Smoking Status: Never smoker How Often Do You Have a Drink Containing Alcohol: 2 to 4 times a month Recent Travel in [place] within the Last 8 Weeks: No Recent Out of Country Travel within the Last 8 Weeks: No Immunization History Tetanus Immunization: <5 Years Medications and Allergies Allergies Allergy/AdvReac Type Severity Reaction Status Date / Time atorvastatin Allergy Severe Anxiety Verified 10/25/18 13:13 ciprofloxacin Allergy Severe Rash Verified 10/25/18 13:13 codeine Allergy Severe Hives/itchi Verified 10/25/18 13:13 ng ezetimibe Allergy Severe ALLERGY TO Verified 10/25/18 13:13 VYTORIN : EZETIMIBE/SIMVASTATIN pitavastatin Allergy Severe "Made me Verified 10/25/18 13:13 feel crazy" simvastatin Allergy Severe ALLERGY TO Verified 10/25/18 13:13 VYTORIN: EZETIMIBE/SIMVASTATIN: ALL TO CRESTOR brimonidine Allergy Intermediate INCREASES Verified 10/25/18 13:13 BP niacin Allergy Intermediate RASH Verified 10/25/18 13:13 sulfamethoxazole Allergy Intermediate HIVES Verified 10/25/18 13:13 timolol Allergy Intermediate INCREASES Verified 10/25/18 13:13 BP trimethoprim Allergy Intermediate HIVES Verified 10/25/18 13:13 latanoprost Allergy Unknown INCREASED Verified 10/25/18 13:13 BP Nsfpvca-Kep-Uey Reductase AdvReac Severe Muscle and Verified 10/25/18 13:13 Inhibitor joint pain pregabalin AdvReac Unknown UNABLE TO Verified 10/25/18 13:13 FUNCTION; MAKES HER GOOFY Home Medications Medication Instructions Recorded Confirmed Type acetaminophen [Tylenol] 650 mg PO Q6H PRN 10/04/18 10/28/18 History alprazolam [Xanax] 0.25 mg PO BID PRN 10/04/18 10/28/18 History biotin 2,500 mcg PO DAILY 10/04/18 10/28/18 History fluticasone-vilanterol [Breo 1 inh INHALATION DAILY 10/04/18 10/28/18 History Ellipta] losartan 50 mg PO DAILY 10/04/18 10/28/18 History bimatoprost [Lumigan] 1 drp OPHTHALMIC (EYE) QPM 10/07/18 10/28/18 History vitamins A,C,R-kddw-odfume [ICaps 1 cap PO BID 10/07/18 10/28/18 History AREDS] Active Medications: Active Medications Acetaminophen (Tylenol) 650 mg PO Q4H PRN PRN Reason: Temp > 100.4, p 1-2 Alprazolam (Xanax) 0.25 mg PO BID PRN PRN Reason: Anxiety Fluticasone/Vilanterol (Breo Ellipta 100/25 Mcg Inh) puff INH DAILY [facility] Sodium Chloride (Ns Inj) 1,000 mls @ 75 mls/hr IV.CONT .[id number] [facility] Lactulose (Lactulose Liq) 30 ml PO DAILY PRN PRN Reason: SEVERE CONSITIPATION Non-Formulary Medication (Bimatoprost [Lumigan]) 1 drp EACH EYE QPM [facility] Ondansetron HCl (Zofran Inj) 4 mg IV.PUSH Q6H PRN PRN Reason: NAUSEA OR VOMITING Pharmacy Profile Note (Coumadin Consult Pharmacy) 1 each OTHER UNSCH PRN PRN Reason: PHARMACY DOCUMENTATION Senna/Docusate Sodium (Berta-Colace) 1 tab PO BID [facility] Sodium Chloride (Ns Flush) 2 ml IV.FLUSH PRN PRN PRN Reason: FLUSH AFTER USING IV ACCESS Sodium Chloride (Ns Flush) 2 ml IV.FLUSH BID [facility] Sodium Chloride (Ns Flush) 2 ml IV.FLUSH PRN PRN PRN Reason: FLUSH AFTER USING IV ACCESS Physical Exam Vital signs: Vital Signs 10/28/18 12:00 10/28/18 12:06 10/28/18 13:06 Temperature 98.1 F Pulse Rate 80 70 70 Respiratory Rate 18 16 Blood Pressure 163/80 H 162/80 H Pulse Oximetry 97 97 98 10/28/18 14:06 10/28/18 15:00 10/28/18 16:15 Temperature Pulse Rate 72 74 78 Respiratory Rate 19 16 17 Blood Pressure 148/63 H 156/65 H 166/76 H Pulse Oximetry 100 99 99 Intake & Output 10/27/18 10/28/18 10/28/18 18:59 06:59 18:59 Intake Total 500 / 500 Balance 500 / 500 Weight 51.71 kg Intake: IV 500 / 500 NS Inj 500 ML @ Wide Open IV. 500 / 500 SIG BOLUS ONE Rx#:[id number] Narrative: GENERAL: Well-nourished, well-developed, pleasant female in no acute distress. SKIN: Focused skin assessment warm/dry. HEAD: Atraumatic. Normocephalic. EYES: Pupils equal and round. No scleral icterus. No injection or drainage. ENT: No nasal bleeding or discharge. Mucous membranes pink and moist. NECK: Trachea midline. No JVD. CARDIOVASCULAR: Regular rate and rhythm. No murmur appreciated. RESPIRATORY: No accessory muscle use. Clear to auscultation. Breath sounds equal bilaterally. GASTROINTESTINAL: Abdomen soft, non-tender, nondistended. Hepatic and splenic margins not palpable. MUSCULOSKELETAL: No obvious deformities. No clubbing. No cyanosis. No edema. NEUROLOGICAL: Awake and alert. No obvious cranial nerve deficits. Motor grossly within normal limits. Normal speech. Normal finger to nose. PSYCHIATRIC: Appropriate mood and affect; insight and judgment normal. Results Labs CBC & Chem 7: 10/28/18 13:10 10/28/18 13:[address] 10/28/18 13:06 CONCLUSION: 1. Possible new area of subtle edema in the right parietal-occipital occipital region compared to previous. MRI may help in evaluation. . . Head MRI 10/28/18 13:47 CONCLUSION: 1. New area of restricted diffusion right posterior right posterior parietal region without hemorrhage 2. Evolving areas of restricted diffusion to have all but resolved high in the right centrum semiovale. 3. Findings are suspicious for an embolic process involving the right hemisphere. Head MRA 10/28/18 14:53 CONCLUSION: 1. There continues to be a focal short segment occlusion involving the right M1 /M2 junction appears to be essentially stable in its appearance compared to the recent prior CTA of the brain. 2. Otherwise, no other new or significant changes are demonstrated. Caprini VTE Risk Assessment Caprini VTE Risk Assessment: Moderate/High Risk (score >= 2) Caprini Risk Assessment Model: Point Value = 1 Point Value = 2 Point Value = 3 Point Value = 5 Age 41-60 Minor surgery BMI > 25 kg/m2 Swollen legs Varicose veins or History of unexplained or recurrent spontaneous Oral contraceptives or hormone replacement Sepsis (< 1 month) Serious lung disease, including pneumonia (< 1 month) Abnormal pulmonary function Acute myocardial infarction Congestive heart failure (< 1 month) History of inflammatory bowel disease Medical patient at bed rest Age 61-74 Arthroscopic surgery Major open surgery (> 45 min) Laparoscopic surgery (> 45 min) Malignancy Confined to bed (> 72 hours) Immobilizing plaster cast Central venous access Age >= 75 History of VTE Family history of VTE Factor V Leiden Prothrombin [id number] Lupus anticoagulant Anticardiolipin antibodies Elevated serum homocysteine Heparin-induced thrombocytopenia Other congenital or acquired thrombophilia Stroke (< 1 month) Elective arthroplasty Hip, pelvis, or leg fracture Acute spinal cord injury (< 1 month) Prophylaxis Regimen: Total Risk Factor Score Risk Level Prophylaxis Regimen 0-1 Low Early ambulation 2 Moderate Order ONE of the following: *Sequential Compression Device (SCD) *Heparin 5000 units SQ BID 3-4 Higher Order ONE of the following medications: *Heparin 5000 units SQ TID *Enoxaparin/Lovenox 40 mg SQ daily (WT < 150 kg, CrCl > 30 mL/min) *Enoxaparin/Lovenox 30 mg SQ daily (WT < 150 kg, CrCl > 10-29 mL/min) *Enoxaparin/Lovenox 30 mg SQ BID (WT < 150 kg, CrCl > 30 mL/min) AND/OR *Sequential Compression Device (SCD) 5 or more Highest Order ONE of the following medications: *Heparin 5000 units SQ TID (Preferred with Epidurals) *Enoxaparin/Lovenox 40 mg SQ daily (WT < 150 kg, CrCl > 30 mL/min) *Enoxaparin/Lovenox 30 mg SQ daily (WT < 150 kg, CrCl > 10-29 mL/min) *Enoxaparin/Lovenox 30 mg SQ BID (WT < 150 kg, CrCl > 30 mL/min) AND *Sequential Compression Device (SCD) Assessment and Plan Plan Acute CVA The patient was recently hospitalized for a CVA. She presents with right-sided facial tingling and right arm tingling. MRI shows new area of restricted diffusion right posterior parietal region without hemorrhage; evolving areas of restricted diffusion to have all but resolved high in the right centrum semiovale; findings are suspicious for an embolic process involving the right hemisphere. MRA: There continues to be a focal short segment occlusion involving the right M1/M2 junction that appears to be essentially stable. Neurology was contacted by the emergency department. -Continue Coumadin. -Neurology recommending PASTORA. Cardiology has been consulted. -Neurochecks. -Bedrest. -Hold antihypertensives. -Normal saline at 75 mL's per hour. -PT/OT/ST. -Telemetry. -Trend troponins. Chronic renal insufficiency Seems stable. -Continue IV fluids and avoid nephrotoxins. PPx: INR therapeutic
[2018-10-28] MEDS: Sod Chloride 0.9% Inj 1,000 ML IV.CONT SCH (22:50)
[2018-10-28] MEDS: Senna/Docusate Sodium 8.6/50 MG Tablet PO SCH (22:51)
[2018-10-28] MEDS: Latanoprost 0.005% Opth Drops 2.5 ML Bottle EACH EYE SCH (22:51)
[2018-10-29 06:02] LABS: Baso % (Auto) 0.7 % (0.0-2.0); Eos # (Auto) 0.9 th/mm3 (0.0-0.4); Eos % (Auto) 13.6 % (0.0-4.0); Hematocrit 32.7 % (35.0-46.0); Hemoglobin 11.3 gm/dL (11.6-15.3); Lymph % (Auto) 30.4 % (9.0-44.0); Mean Corpuscular HGB Conc 34.5 % (32.0-36.0); Mean Corpuscular Hemoglobin 33.2 pg (27.0-34.0); Mean Corpuscular Volume 96.4 fL (80.0-100.0); Mean Platelet Volume 6.6 fL (7.0-11.0); Mono # (Auto) 0.5 th/mm3 (0.0-0.9); Mono % (Auto) 7.7 % (0.0-8.0); Neut # (Auto) 3.2 th/mm3 (1.8-7.7); Neut % (Auto) 47.6 % (16.0-70.0); Platelet Count 284 th/mm3 (150-450); Red Blood Count 3.39 mil/mm3 (4.00-5.30); Red Cell Distribution Width 13.4 % (11.6-17.2); White Blood Count 6.6 th/mm3 (4.0-11.0)
[2018-10-29 06:14] LABS: INR 3.3 Ratio; Prothrombin Time 33.3 sec (9.8-11.6)
[2018-10-29 06:55] LABS: Alanine Aminotransferase 15 U/L (10-53); Albumin 3.1 g/dL (3.4-5.0); Alkaline Phosphatase 63 U/L (45-117); Anion Gap 6 meq/L (5-15); Aspartate Aminotransferase 17 U/L (15-37); Blood Urea Nitrogen 15 mg/dL (7-18); Calcium 8.3 mg/dL (8.5-10.1); Carbon Dioxide 25.4 meq/L (21.0-32.0); Chloride 112 meq/L (98-107); Glomerular Filtration Rate 59 mL/min (>89); Glucose,Random 83 mg/dL (74-106); Potassium 4.3 meq/L (3.5-5.1); Sodium 143 meq/L (136-145); Total Protein 6.4 g/dL (6.4-8.2)
--- NOTE | 2018-10-29 09:41 | P.CONCA ---
History of Present Illness Service: Cardiology Requesting Physician: Jarocho Carranza Reason for Consult: CVA Primary Care Provider: Mark Villanueva MD Chief Complaint: Numbness and tingling History of Present Illness: Pleasant 83-year-old female well-known to our practice with a significant past cardiac history of ASHD with heart catheter in 2006, syncope, stroke September 2018, palpitations, CHF, hypertension, and hyperlipidemia. Other medical history includes malignant breast CA, follicular lymphoma with chemo and radiation, non-Hodgkin's lymphoma, history of single radiation treatment to small area on brain in the past, followed by Dr. Colindres, temporal arteritis, and optical migraines. Patient was hospitalized early October and diagnosed with a new embolic stroke , she was discharged home on Coumadin. INR yesterday was 2.5, today 3.3 patient is also on baby aspirin. In early pt was hospitalized with new stroke, she was also in ER last week following syncopal episode. Patient was in our office yesterday for 30-day MCOT placement when she developed numbness and tingling on the right side of her face and right arm. She was sent to ER for further evaluation where she had CT head that showed possible new area of subtle edema in the right parietaloccipital region compared to previous, MRI head showed a new area of restricted diffusion right posterior right posterior parietal region without hemorrhage, evolving area of restricted diffusion, with findings that are suspicious for an embolic process involving the right. Neurology has been consulted. Today patient denies any residual symptoms. No chest pain shortness of breath dizziness. Review of Systems All other systems reviewed negative except as stated in HPI PMFSH - History History Provided By: Patient - Medical History Medical History: Medical History (Last Reviewed 10/29/18 @ 11:35 by Lo Eden) Glaucoma Macular degeneration Breast cancer CHF (congestive heart failure) Hyperlipidemia Hypertension Lymphoma Mitral valve regurgitation Non-Hodgkin lymphoma Stroke - Surgical History Surgical History: Surgical History (Last Reviewed 10/29/18 @ 11:35 by Lo Eden) H/O mastectomy History of tonsillectomy and adenoidectomy - Family History Family History: Family History (Last Reviewed 10/28/18 @ 17:56 by Jarocho Carranza DO) Other Myocardial infarction - Tobacco History Second Hand Smoke Exposure: No Smoking Status: Never smoker - Alcohol History How Often Do You Have a Drink Containing Alcohol: 2 to 4 times a month - Substance Use History Substance History: No History of Abuse - Travel History Recent Travel in the [place] Within the Last 8 Weeks: No Recent Travel Out of the Country Within the Last 8 Weeks: No - Immunization History Tetanus Immunization: <5 Years Medications and Allergies Allergies Allergy/AdvReac Type Severity Reaction Status Date / Time atorvastatin Allergy Severe Anxiety Verified 10/25/18 13:13 ciprofloxacin Allergy Severe Rash Verified 10/25/18 13:13 codeine Allergy Severe Hives/itchi Verified 10/25/18 13:13 ng ezetimibe Allergy Severe ALLERGY TO Verified 10/25/18 13:13 VYTORIN : EZETIMIBE/SIMVASTATIN pitavastatin Allergy Severe "Made me Verified 10/25/18 13:13 feel crazy" simvastatin Allergy Severe ALLERGY TO Verified 10/25/18 13:13 VYTORIN: EZETIMIBE/SIMVASTATIN: ALL TO CRESTOR brimonidine Allergy Intermediate INCREASES Verified 10/25/18 13:13 BP niacin Allergy Intermediate RASH Verified 10/25/18 13:13 sulfamethoxazole Allergy Intermediate HIVES Verified 10/25/18 13:13 timolol Allergy Intermediate INCREASES Verified 10/25/18 13:13 BP trimethoprim Allergy Intermediate HIVES Verified 10/25/18 13:13 latanoprost Allergy Unknown INCREASED Verified 10/25/18 13:13 BP Jjsfynu-Wqb-Tnx Reductase AdvReac Severe Muscle and Verified 10/25/18 13:13 Inhibitor joint pain pregabalin AdvReac Unknown UNABLE TO Verified 10/25/18 13:13 FUNCTION; MAKES HER GOOFY Home Medications Medication Instructions Recorded Confirmed Type acetaminophen [Tylenol] 650 mg PO Q6H PRN 10/04/18 10/28/18 History alprazolam [Xanax] 0.25 mg PO BID PRN 10/04/18 10/28/18 History biotin 2,500 mcg PO DAILY 10/04/18 10/28/18 History fluticasone-vilanterol [Breo 1 inh INHALATION DAILY 10/04/18 10/28/18 History Ellipta] losartan 50 mg PO DAILY 10/04/18 10/28/18 History bimatoprost [Lumigan] 1 drp OPHTHALMIC (EYE) QPM 10/07/18 10/28/18 History vitamins A,C,B-dviy-svyqfd [ICaps 1 cap PO BID 10/07/18 10/28/18 History AREDS] warfarin 5 mg PO DAILY 10/29/18 10/29/18 History Active Medications: Active Medications Acetaminophen (Tylenol) 650 mg PO Q4H PRN PRN Reason: Temp > 100.4, p 1-2 Alprazolam (Xanax) 0.25 mg PO BID PRN PRN Reason: Anxiety Fluticasone/Vilanterol (Breo Ellipta 100/25 Mcg Inh) 1 puff INH DAILY [facility] Sodium Chloride (Ns Inj) 1,000 mls @ 75 mls/hr IV.CONT .[id number] [facility] Last Admin: 10/28/18 22:50 Dose: 75 mls/hr Lactulose (Lactulose Liq) 30 ml PO DAILY PRN PRN Reason: SEVERE CONSITIPATION Latanoprost (Xalatan 0.005% Opth Drops) 1 drop EACH EYE QPM [facility] Last Admin: 10/28/18 22:51 Dose: Not Given Ondansetron HCl (Zofran Inj) 4 mg IV.PUSH Q6H PRN PRN Reason: NAUSEA OR VOMITING Pharmacy Profile Note (Coumadin Consult Pharmacy) 1 each OTHER UNSCH PRN PRN Reason: PHARMACY DOCUMENTATION Senna/Docusate Sodium (Berta-Colace) 1 tab PO BID [facility] Last Admin: 10/28/18 22:51 Dose: Not Given Sodium Chloride (Ns Flush) 2 ml IV.FLUSH BID [facility] Last Admin: 10/28/18 21:30 Dose: 2 ml Sodium Chloride (Ns Flush) 2 ml IV.FLUSH PRN PRN PRN Reason: FLUSH AFTER USING IV ACCESS Exam Vital signs: Vital Signs 10/28/18 12:00 10/28/18 12:06 10/28/18 13:06 Temperature 98.1 F Pulse Rate 80 70 70 Respiratory Rate 18 16 Blood Pressure 163/80 H 162/80 H Pulse Oximetry 97 97 98 10/28/18 14:06 10/28/18 15:00 10/28/18 16:15 Temperature Pulse Rate 72 74 78 Respiratory Rate 19 16 17 Blood Pressure 148/63 H 156/65 H 166/76 H Pulse Oximetry 100 99 99 10/28/18 22:31 10/29/18 02:04 10/29/18 05:57 Temperature 98.0 F Pulse Rate 79 73 Respiratory Rate 16 16 Blood Pressure 128/60 169/74 H Pulse Oximetry 98 98 98 10/29/18 09:14 Temperature Pulse Rate 82 Respiratory Rate 20 Blood Pressure 176/86 H Pulse Oximetry 98 Intake & Output 10/28/18 10/29/18 10/29/18 18:59 06:59 18:59 Intake Total 500 / 500 Balance 500 / 500 Weight 51.71 kg Intake: IV 500 / 500 NS Inj 500 ML @ Wide Open IV. 500 / 500 SIG BOLUS ONE Rx#:[id number] - Constitutional no acute distress, average body habitus - Routine HEENT Exam Head: Present: normocephalic, atraumatic Eye: Present: EOMI, PERRL, normal accommodation ENT: Present: mucous membranes moist - Routine Neck Exam Present: supple - Routine Respiratory Exam Present: CTA bilaterally - Routine Cardiovascular Exam Present: RRR - Routine Abdominal Exam Present: soft - Routine Extremities Exam Present: full ROM, pulses intact, normal capillary refill - Routine Skin Exam Present: intact - Routine Neurological Exam Present: alert, oriented X3 Results 10/29/18 05:24 10/29/18 05:24 Cardiac Enzymes 10/28/18 10/28/18 10/29/18 Range/Units 13:10 13:10 00:40 AST 21 (15-37) U/L Troponin I Less than 0.02 L Less than 0.02 L (0.02-0.05) ng/mL 10/29/18 Range/Units 05:24 AST 17 (15-37) U/L Troponin I (0.02-0.05) ng/mL Coagulation 10/28/18 10/29/18 Range/Units 13:10 05:24 PT 25.6 H 33.3 H (9.8-11.6) sec CBC 10/28/18 10/29/18 Range/Units 13:10 05:24 WBC 8.1 6.6 (4.0-11.0) th/mm3 RBC 4.04 3.39 L (4.00-5.30) mil/mm3 Hgb 13.4 11.3 L D (11.6-15.3) gm/dL Hct 39.5 32.7 L (35.0-46.0) % Plt Count 322 284 (150-450) th/mm3 Neut # (Auto) 4.6 3.2 (1.8-7.7) th/mm3 Lymph # (Auto) 2.1 2.0 (1.0-4.8) th/mm3 [place] # (Auto) 0.4 0.5 (0.0-0.9) th/mm3 Eos # (Auto) 0.8 H 0.9 H (0.0-0.4) th/mm3 Baso # (Auto) 0.1 0.0 (0.0-0.2) th/mm3 Comprehensive Metabolic Panel 10/28/18 10/29/18 Range/Units 13:10 05:24 Sodium 138 143 (136-145) meq/L Potassium 4.0 4.3 (3.5-5.1) meq/L Chloride 105 112 H (98-107) meq/L Carbon Dioxide 26.0 25.4 (21.0-32.0) meq/L BUN 19 H 15 (7-18) mg/dL Creatinine 1.11 H 0.91 (0.50-1.00) mg/dL Calcium 8.9 8.3 L (8.5-10.1) mg/dL AST 21 17 (15-37) U/L ALT 19 15 (10-53) U/L Alkaline Phosphatase 81 63 (45-117) U/L Total Protein 8.1 D 6.4 D (6.4-8.2) g/dL Albumin 4.3 3.1 L D (3.4-5.0) g/dL - Imaging and Cardiology Imaging: Impressions Head CT 10/28/18 13:06 CONCLUSION: 1. Possible new area of subtle edema in the right parietal-occipital occipital region compared to previous. MRI may help in evaluation. . . Head MRI 10/28/18 13:47 CONCLUSION: 1. New area of restricted diffusion right posterior right posterior parietal region without hemorrhage 2. Evolving areas of restricted diffusion to have all but resolved high in the right centrum semiovale. 3. Findings are suspicious for an embolic process involving the right hemisphere. Head MRA 10/28/18 14:53 CONCLUSION: 1. There continues to be a focal short segment occlusion involving the right M1 /M2 junction appears to be essentially stable in its appearance compared to the recent prior CTA of the brain. 2. Otherwise, no other new or significant changes are demonstrated. Assessment and Plan - Plan Assessment Stroke Syncope ASHD Hypertension Plan Neurology has been consulted. Questionable new stroke despite being on aspirin and Coumadin with a therapeutic INR. Spoke to Dr. Maza, will hold off on PASTORA until he evaluates patient further. Will plan to continue coumadin, stop Aspirin and start plavix. Allow for permissive hypertension, will defer to Neurology. The patient was seen and evaluated by Dr. Marshall who participated in care management and decision making The exam, history, and the medical decision-making described in the above note were completed with the assistance of the mid-level provider. I reviewed and agree with the findings presented. I attest that I had a [id number] encounter with the patient on the same day, and personally performed and documented my assessment and findings in the medical record. Doing better, switch to plavix and coumadin; discussed in detail with Dr Lin; will consider PASTORA if needed as per Dr Lin Code Status: DNR Discussed Condition With: Dr. Joanna RN, and patients daughter.
[2018-10-29] MEDS: Sod Chloride 0.9% Inj 1,000 ML IV.CONT SCH (09:42)
[2018-10-29] MEDS: ALPRAZolam 0.25 MG Tablet PO PRN ×2 (09:43→22:38)
[2018-10-29] MEDS: Senna/Docusate Sodium 8.6/50 MG Tablet PO SCH ×2 (09:43→22:38)
--- NOTE | 2018-10-29 10:36 | P.PNIM ---
Subjective Interval history: Patient's right-sided paresthesias of the face and arm have improved. She is not noticing herself any residual deficit. PASTORA planned. Physical Exam Vital signs: Vital Signs 10/28/18 12:00 10/28/18 12:06 10/28/18 13:06 Temperature 98.1 F Pulse Rate 80 70 70 Respiratory Rate 18 16 Blood Pressure 163/80 H 162/80 H Pulse Oximetry 97 97 98 10/28/18 14:06 10/28/18 15:00 10/28/18 16:15 Temperature Pulse Rate 72 74 78 Respiratory Rate 19 16 17 Blood Pressure 148/63 H 156/65 H 166/76 H Pulse Oximetry 100 99 99 10/28/18 22:31 10/29/18 02:04 10/29/18 05:57 Temperature 98.0 F Pulse Rate 79 73 Respiratory Rate 16 16 Blood Pressure 128/60 169/74 H Pulse Oximetry 98 98 98 10/29/18 09:14 10/29/18 10:30 Temperature Pulse Rate 82 94 H Respiratory Rate 20 19 Blood Pressure 176/86 H 185/84 H Pulse Oximetry 98 95 Intake & Output 10/28/18 10/29/18 10/29/18 18:59 06:59 18:59 Intake Total 500 / 500 1000 / 1000 Balance 500 / 500 1000 / 1000 Weight 51.71 kg Intake: IV 500 / 500 1000 / 1000 NS Inj 1,000 ML @ 75 mls/hr IV. 1000 / 1000 CONT .[id number] [facility] Rx#:[id number] NS Inj 500 ML @ Wide Open IV. 500 / 500 SIG BOLUS ONE Rx#:[id number] Narrative: GENERAL: NAD, A&Ox3 HEAD: Normocephalic. NECK: Supple, trachea midline. No lymphadenopathy. EYES: No scleral icterus. No injection or drainage. CARDIOVASCULAR: Regular rate and rhythm without murmurs, gallops, or rubs. RESPIRATORY: Breath sounds equal bilaterally. No accessory muscle use. GASTROINTESTINAL: Abdomen soft, non-tender, nondistended. MUSCULOSKELETAL: No cyanosis, or edema. SKIN: Warm and dry. NEURO: No focal neurological deficits. Results Labs CBC & Chem 7: 10/29/18 05:24 10/29/18 05:24 Imaging Imaging: Impressions Head CT 10/28/18 13:06 CONCLUSION: 1. Possible new area of subtle edema in the right parietal-occipital occipital region compared to previous. MRI may help in evaluation. . . Head MRI 10/28/18 13:47 CONCLUSION: 1. New area of restricted diffusion right posterior right posterior parietal region without hemorrhage 2. Evolving areas of restricted diffusion to have all but resolved high in the right centrum semiovale. 3. Findings are suspicious for an embolic process involving the right hemisphere. Head MRA 10/28/18 14:53 CONCLUSION: 1. There continues to be a focal short segment occlusion involving the right M1 /M2 junction appears to be essentially stable in its appearance compared to the recent prior CTA of the brain. 2. Otherwise, no other new or significant changes are demonstrated. Assessment and Plan Plan 83-year-old female admitted secondary to acute CVA Acute CVA Positive findings on MRI Patient on Coumadin and aspirin at time of CVA Continue Coumadin and aspirin Follow INR INR today is 3.3, will continue to monitor rather than adjust at this point Continue physical therapy PASTORA planned Monitor on telemetry Neurology following Chronic renal insufficiency Follow renal function Avoid nephrotoxins DVT prophylaxis Coumadin
--- NOTE | 2018-10-29 15:52 | P.CONNEU ---
History of Present Illness Service: Neurology Primary Care Provider: Mark Villanueva MD Chief Complaint: Numbness and tingling History of Present Illness: 83-year-old female admitted for possible recurrent stroke. 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 Told to come into the hospital for further evaluation. She has a history of complicated migraines with visual disturbance headache which she states she is having yesterday morning however she is never had hemisensory symptoms before. She is on Coumadin and aspirin. She is seen earlier this month for right hemispheric stroke dizziness and syncope was placed on Coumadin. She denies any vision loss hemisensory symptoms or focal weakness or headache feels well. Denies any chest pain or dyspnea. Review of Systems All other systems reviewed negative except as stated in HPI [facility] - History History Provided By: Patient - Medical History Medical History: Medical History (Last Reviewed 10/29/18 @ 11:35 by Lo Eden) Glaucoma Macular degeneration Breast cancer CHF (congestive heart failure) Hyperlipidemia Hypertension Lymphoma Mitral valve regurgitation Non-Hodgkin lymphoma Stroke - Surgical History Surgical History: Surgical History (Last Reviewed 10/29/18 @ 11:35 by Lo Eden) H/O mastectomy History of tonsillectomy and adenoidectomy - Family History Family History: Family History (Last Reviewed 10/28/18 @ 17:56 by Jarocho Carranza DO) Other Myocardial infarction - Tobacco History Second Hand Smoke Exposure: No Smoking Status: Never smoker - Alcohol History How Often Do You Have a Drink Containing Alcohol: 2 to 4 times a month - Substance Use History Substance History: No History of Abuse - Travel History Recent Travel in the [place] Within the Last 8 Weeks: No Recent Travel Out of the Country Within the Last 8 Weeks: No - Immunization History Tetanus Immunization: <5 Years Hx Influenza Vaccine This Season: Yes Medications and Allergies Active Medications: Active Medications Acetaminophen (Tylenol) 650 mg PO Q4H PRN PRN Reason: Temp > 100.4, p 1-2 Alprazolam (Xanax) 0.25 mg PO BID PRN PRN Reason: Anxiety Last Admin: 10/29/18 09:43 Dose: 0.25 mg Clopidogrel Bisulfate (Plavix) 75 mg PO DAILY [facility] Enalaprilat (Vasotec Inj) 1.25 mg IV.PUSH Q6H PRN PRN Reason: Systoloic BP > 210 mmHg Fluticasone/Vilanterol (Breo Ellipta 100/25 Mcg Inh) 1 puff INH DAILY [facility] Last Admin: 10/29/18 09:44 Dose: Not Given Sodium Chloride (Ns Inj) 1,000 mls @ 75 mls/hr IV.CONT .[id number] [facility] Last Admin: 10/29/18 09:42 Dose: 75 mls/hr Lactulose (Lactulose Liq) 30 ml PO DAILY PRN PRN Reason: SEVERE CONSITIPATION Latanoprost (Xalatan 0.005% Opth Drops) 1 drop EACH EYE QPM [facility] Last Admin: 10/28/18 22:51 Dose: Not Given Ondansetron HCl (Zofran Inj) 4 mg IV.PUSH Q6H PRN PRN Reason: NAUSEA OR VOMITING Pharmacy Profile Note (Coumadin Consult Pharmacy) 1 each OTHER UNSCH PRN PRN Reason: PHARMACY DOCUMENTATION Senna/Docusate Sodium (Berta-Colace) 1 tab PO BID [facility] Last Admin: 10/29/18 09:43 Dose: 1 tab Sodium Chloride (Ns Flush) 2 ml IV.FLUSH BID [facility] Last Admin: 10/29/18 09:43 Dose: 2 ml Sodium Chloride (Ns Flush) 2 ml IV.FLUSH PRN PRN PRN Reason: FLUSH AFTER USING IV ACCESS Allergies Allergy/AdvReac Type Severity Reaction Status Date / Time atorvastatin Allergy Severe Anxiety Verified 10/25/18 13:13 ciprofloxacin Allergy Severe Rash Verified 10/25/18 13:13 codeine Allergy Severe Hives/itchi Verified 10/25/18 13:13 ng ezetimibe Allergy Severe ALLERGY TO Verified 10/25/18 13:13 VYTORIN : EZETIMIBE/SIMVASTATIN pitavastatin Allergy Severe "Made me Verified 10/25/18 13:13 feel crazy" simvastatin Allergy Severe ALLERGY TO Verified 10/25/18 13:13 VYTORIN: EZETIMIBE/SIMVASTATIN: ALL TO CRESTOR brimonidine Allergy Intermediate INCREASES Verified 10/25/18 13:13 BP niacin Allergy Intermediate RASH Verified 10/25/18 13:13 sulfamethoxazole Allergy Intermediate HIVES Verified 10/25/18 13:13 timolol Allergy Intermediate INCREASES Verified 10/25/18 13:13 BP trimethoprim Allergy Intermediate HIVES Verified 10/25/18 13:13 latanoprost Allergy Unknown INCREASED Verified 10/25/18 13:13 BP Qfymelf-Neu-Cse Reductase AdvReac Severe Muscle and Verified 10/25/18 13:13 Inhibitor joint pain pregabalin AdvReac Unknown UNABLE TO Verified 10/25/18 13:13 FUNCTION; MAKES HER GOOFY Home Medications Medication Instructions Recorded Confirmed Type acetaminophen [Tylenol] 650 mg PO Q6H PRN 10/04/18 10/28/18 History alprazolam [Xanax] 0.25 mg PO BID PRN 10/04/18 10/28/18 History biotin 2,500 mcg PO DAILY 10/04/18 10/28/18 History fluticasone-vilanterol [Breo 1 inh INHALATION DAILY 10/04/18 10/28/18 History Ellipta] losartan 50 mg PO DAILY 10/04/18 10/28/18 History bimatoprost [Lumigan] 1 drp OPHTHALMIC (EYE) QPM 10/07/18 10/28/18 History vitamins A,C,H-enwx-pewkjt [ICaps 1 cap PO BID 10/07/18 10/28/18 History AREDS] warfarin 5 mg PO DAILY 10/29/18 10/29/18 History Exam Vital signs: Vital Signs 10/28/18 16:15 10/28/18 22:31 10/29/18 02:04 Temperature 98.0 F Pulse Rate 78 79 Respiratory Rate 17 16 Blood Pressure 166/76 H 128/60 Pulse Oximetry 99 98 98 10/29/18 05:57 10/29/18 09:14 10/29/18 10:30 Temperature Pulse Rate 73 82 94 H Respiratory Rate 16 20 19 Blood Pressure 169/74 H 176/86 H 185/84 H Pulse Oximetry 98 98 95 10/29/18 12:00 Temperature 97.4 F L Pulse Rate 89 Respiratory Rate 18 Blood Pressure 186/81 H Pulse Oximetry 99 Intake & Output 10/28/18 10/29/18 10/29/18 18:59 06:59 18:59 Intake Total 500 / 500 1000 / 1000 Balance 500 / 500 1000 / 1000 Weight 51.71 kg 55 kg Intake: IV 500 / 500 1000 / 1000 NS Inj 1,000 ML @ 75 mls/hr IV. 1000 / 1000 CONT .[id number] [facility] Rx#:[id number] NS Inj 500 ML @ Wide Open IV. 500 / 500 SIG BOLUS ONE Rx#:[id number] Other: # Voids 1 Date of Last Bowel Movement 10/26/18 Weight On Admission 55 kg Narrative: GENERAL: in NAD, SKIN: Warm and dry. HEAD: Atraumatic. Normocephalic. EYES: Pupils equal and round. No scleral icterus. ENT: No nasal bleeding or discharge. Mucous membranes pink and moist. NECK: Trachea midline. No JVD. CARDIOVASCULAR: Regular rate and rhythm. RESPIRATORY: No accessory muscle use. GASTROINTESTINAL: Abdomen soft, non-tender, nondistended. MUSCULOSKELETAL: Extremities without clubbing, cyanosis, or edema. No obvious deformities. NEUROLOGICAL: Awake and alert. No aphasia, fluent articulate, No facial asymmetry, OU approximately 3 mm sluggish, OU surgical cataract extraction changes noted, Eomi, VF showing slightly reduced left curvilinear homonymous hemianopsia, No drift, Motor grossly within normal limits. Five out of 5 muscle strength in the arms and legs. Tone normal in all 4 limbs, mild reduced pinprick distal fingertips toes from previous chemotherapy, msr 1-2+ sym, no clonus, planterflexor, PSYCHIATRIC: Appropriate mood and affect; insight and judgment normal. - Constitutional no acute distress - Routine HEENT Exam Head: Present: normocephalic Eye: Present: EOMI Results - Labs CBC & Chem 7: 10/29/18 05:24 10/29/18 05:24 Labs: Laboratory Results - last 24 hr 10/28/18 10/29/18 10/29/18 13:10 00:40 05:24 WBC RBC Hgb Hct MCV MCH MCHC RDW Plt Count MPV Neut % (Auto) Lymph % (Auto) [place] % (Auto) Eos % (Auto) Baso % (Auto) Neut # (Auto) Lymph # (Auto) [place] # (Auto) Eos # (Auto) Baso # (Auto) WBC Differential Differential Comment PT 33.3 H INR 3.3 Sodium Potassium Chloride Carbon Dioxide Anion Gap BUN Creatinine Estimated GFR POC Glucose Random Glucose Calcium Total Bilirubin AST ALT Alkaline Phosphatase Troponin I Less than 0.02 L Less than 0.02 L Total Protein Albumin 10/29/18 10/29/18 10/29/18 05:24 05:24 12:26 WBC 6.6 RBC 3.39 L Hgb 11.3 L D Hct 32.7 L MCV 96.4 MCH 33.2 MCHC 34.5 RDW 13.4 Plt Count 284 MPV 6.6 L Neut % (Auto) 47.6 Lymph % (Auto) 30.4 [place] % (Auto) 7.7 Eos % (Auto) 13.6 H Baso % (Auto) 0.7 Neut # (Auto) 3.2 Lymph # (Auto) 2.0 [place] # (Auto) 0.5 Eos # (Auto) 0.9 H Baso # (Auto) 0.0 WBC Differential . Differential Comment Auto diff final PT INR Sodium 143 Potassium 4.3 Chloride 112 H Carbon Dioxide 25.4 Anion Gap 6 BUN 15 Creatinine 0.91 Estimated GFR 59 L POC Glucose 93 Random Glucose 83 Calcium 8.3 L Total Bilirubin 0.2 AST 17 ALT 15 Alkaline Phosphatase 63 Troponin I Total Protein 6.4 D Albumin 3.1 L D - Imaging Impressions Head MRI 10/28/18 13:47 CONCLUSION: 1. New area of restricted diffusion right posterior right posterior parietal region without hemorrhage 2. Evolving areas of restricted diffusion to have all but resolved high in the right centrum semiovale. 3. Findings are suspicious for an embolic process involving the right hemisphere. Head MRA 10/28/18 14:53 CONCLUSION: 1. There continues to be a focal short segment occlusion involving the right M1 /M2 junction appears to be essentially stable in its appearance compared to the recent prior CTA of the brain. 2. Otherwise, no other new or significant changes are demonstrated. Review/Management - Diagnosis (1) Acute right MCA stroke Code(s): I63.511 - Cerebral infarction due to unspecified occlusion or stenosis of right middle cerebral artery Status: Acute Current Visit: Yes (2) Stroke Code(s): I63.9 - Cerebral infarction, unspecified Status: Acute Current Visit: No (3) Hypertension Code(s): I10 - Essential (primary) hypertension Status: Acute Current Visit : Yes (4) Complicated migraine Code(s): G43.109 - Migraine with aura, not intractable, without status migrainosus Status: Acute Current Visit: Yes (5) CHF (congestive heart failure) Code(s): I50.9 - Heart failure, unspecified Status: Acute Current Visit: Yes (6) Syncope Code(s): R55 - Syncope and collapse Status: Acute Current Visit: No (7) Skin laceration Status: Acute Current Visit: No - Review/Management Plan: Right MCA stroke with right MCA occlusion. The right MCA occlusion is chronic. She has acute on chronic stroke. She had right hemispheric strokes noted September 2018 images are not available to compare to. She looks quite well at present. Allergies to statin EF 55-6% on last echo Possible hypercoagulable state with previous history of cancer Recommendations Continue Coumadin Aspirin has been changed to Plavix. We discussed high risk of bleeding with this combination she also understands that she is having recurrent strokes. EEG Orthostatics Therapy Follow exam No driving outpatient formal visual field testing (6) Syncope Qualifiers: Syncope type: unspecified Qualified Code(s): R55 - Syncope and collapse
[2018-10-29] MEDS: Latanoprost 0.005% Opth Drops 2.5 ML Bottle EACH EYE SCH (18:01)
--- NOTE | 2018-10-29 20:32 | ECG ---
Date Performed: 10/28/2018 Time Performed: 12:12:33 PTAGE: 83 years EKG: Sinus rhythm NORMAL ECG PREVIOUS TRACING : 10/25/2018 13.58 Since the previous tracing, no significant change noted DOCTOR: Kelsie Marshall Interpretating Date/Time 10/29/2018 20:31:31
[2018-10-30] MEDS: Sod Chloride 0.9% Inj 1,000 ML IV.CONT SCH ×2 (01:30→18:16)
[2018-10-30 07:07] LABS: Baso % (Auto) 0.8 % (0.0-2.0); Eos # (Auto) 0.9 th/mm3 (0.0-0.4); Eos % (Auto) 15.1 % (0.0-4.0); Hematocrit 35.5 % (35.0-46.0); Hemoglobin 12.1 gm/dL (11.6-15.3); Lymph # (Auto) 1.7 th/mm3 (1.0-4.8); Lymph % (Auto) 27.6 % (9.0-44.0); Mean Corpuscular HGB Conc 34.1 % (32.0-36.0); Mean Corpuscular Hemoglobin 33.5 pg (27.0-34.0); Mean Corpuscular Volume 98.3 fL (80.0-100.0); Mean Platelet Volume 6.7 fL (7.0-11.0); Mono # (Auto) 0.4 th/mm3 (0.0-0.9); Mono % (Auto) 7.2 % (0.0-8.0); Neut % (Auto) 49.3 % (16.0-70.0); Platelet Count 276 th/mm3 (150-450); Red Blood Count 3.61 mil/mm3 (4.00-5.30); Red Cell Distribution Width 13.7 % (11.6-17.2)
[2018-10-30 07:20] LABS: INR 3.3 Ratio; Prothrombin Time 33.3 sec (9.8-11.6)
[2018-10-30 07:36] LABS: Albumin 3.2 g/dL (3.4-5.0); Anion Gap 7 meq/L (5-15); Aspartate Aminotransferase 17 U/L (15-37); Blood Urea Nitrogen 12 mg/dL (7-18); Calcium 8.2 mg/dL (8.5-10.1); Carbon Dioxide 25.7 meq/L (21.0-32.0); Chloride 112 meq/L (98-107); Glomerular Filtration Rate 60 mL/min (>89); Glucose,Random 83 mg/dL (74-106); Sodium 145 meq/L (136-145)
[2018-10-30 07:39] LABS: Alanine Aminotransferase 13 U/L (10-53); Alkaline Phosphatase 66 U/L (45-117); Total Protein 6.7 g/dL (6.4-8.2)
--- NOTE | 2018-10-30 08:47 | P.PNNEU ---
Subjective Subjective Comments: No cp, no dyspnea, no esparza, no focal weakness, no vision loss Active Medications: Active Medications Acetaminophen (Tylenol) 650 mg PO Q4H PRN PRN Reason: Temp > 100.4, p 1-2 Alprazolam (Xanax) 0.25 mg PO BID PRN PRN Reason: Anxiety Last Admin: 10/29/18 22:38 Dose: 0.25 mg Clopidogrel Bisulfate (Plavix) 75 mg PO DAILY [facility] Last Admin: 10/29/18 18:00 Dose: 75 mg Enalaprilat (Vasotec Inj) 1.25 mg IV.PUSH Q6H PRN PRN Reason: Systoloic BP > 210 mmHg Fluticasone/Vilanterol (Breo Ellipta 100/25 Mcg Inh) 1 puff INH DAILY [facility] Last Admin: 10/29/18 09:44 Dose: Not Given Sodium Chloride (Ns Inj) 1,000 mls @ 75 mls/hr IV.CONT .[id number] [facility] Last Admin: 10/30/18 01:30 Dose: 75 mls/hr Lactulose (Lactulose Liq) 30 ml PO DAILY PRN PRN Reason: SEVERE CONSITIPATION Latanoprost (Xalatan 0.005% Opth Drops) 1 drop EACH EYE QPM [facility] Last Admin: 10/29/18 18:01 Dose: Not Given Ondansetron HCl (Zofran Inj) 4 mg IV.PUSH Q6H PRN PRN Reason: NAUSEA OR VOMITING Pharmacy Profile Note (Coumadin Consult Pharmacy) 1 each OTHER UNSCH PRN PRN Reason: PHARMACY DOCUMENTATION Senna/Docusate Sodium (Berta-Colace) 1 tab PO BID [facility] Last Admin: 10/29/18 22:38 Dose: 1 tab Sodium Chloride (Ns Flush) 2 ml IV.FLUSH BID [facility] Last Admin: 10/29/18 22:38 Dose: Not Given Sodium Chloride (Ns Flush) 2 ml IV.FLUSH PRN PRN PRN Reason: FLUSH AFTER USING IV ACCESS Allergies/Adverse Reactions: Allergies Allergy/AdvReac Type Severity Reaction Status Date / Time atorvastatin Allergy Severe Anxiety Verified 10/25/18 13:13 ciprofloxacin Allergy Severe Rash Verified 10/25/18 13:13 codeine Allergy Severe Hives/itchi Verified 10/25/18 13:13 ng ezetimibe Allergy Severe ALLERGY TO Verified 10/25/18 13:13 VYTORIN : EZETIMIBE/SIMVASTATIN pitavastatin Allergy Severe "Made me Verified 10/25/18 13:13 feel crazy" simvastatin Allergy Severe ALLERGY TO Verified 10/25/18 13:13 VYTORIN: EZETIMIBE/SIMVASTATIN: ALL TO CRESTOR brimonidine Allergy Intermediate INCREASES Verified 10/25/18 13:13 BP niacin Allergy Intermediate RASH Verified 10/25/18 13:13 sulfamethoxazole Allergy Intermediate HIVES Verified 10/25/18 13:13 timolol Allergy Intermediate INCREASES Verified 10/25/18 13:13 BP trimethoprim Allergy Intermediate HIVES Verified 10/25/18 13:13 latanoprost Allergy Unknown INCREASED Verified 10/25/18 13:13 BP Okdonar-Sqe-Agd Reductase AdvReac Severe Muscle and Verified 10/25/18 13:13 Inhibitor joint pain pregabalin AdvReac Unknown UNABLE TO Verified 10/25/18 13:13 FUNCTION; MAKES HER GOOFY Review of Systems All other systems reviewed negative except as stated in HPI Physical Exam Vital signs: Vital Signs 10/29/18 09:14 10/29/18 10:30 10/29/18 12:00 Temperature 97.4 F L Pulse Rate 82 94 H 89 Respiratory Rate 20 19 18 Blood Pressure 176/86 H 185/84 H 186/81 H Pulse Oximetry 98 95 99 10/29/18 16:35 10/29/18 19:55 10/29/18 20:00 Temperature 97.5 F L 97.9 F Pulse Rate 82 84 90 Respiratory Rate 20 20 Blood Pressure 143/65 H 178/75 H Pulse Oximetry 98 99 10/30/18 00:00 10/30/18 00:12 10/30/18 03:58 Temperature 98.0 F Pulse Rate 87 83 71 Respiratory Rate 20 Blood Pressure 144/71 H Pulse Oximetry 96 10/30/18 04:57 10/30/18 08:00 Temperature 97.9 F 98.2 F Pulse Rate 78 75 Respiratory Rate 18 18 Blood Pressure 187/87 H 179/80 H Pulse Oximetry 96 97 Intake & Output 10/29/18 10/30/18 10/30/18 18:59 06:59 18:59 Intake Total 1000 / 1000 1000 / 1000 Balance 1000 / 1000 1000 / 1000 Weight 55 kg 55 kg Intake: IV 1000 / 1000 1000 / 1000 NS Inj 1,000 ML @ 75 mls/hr IV. 1000 / 1000 1000 / 1000 CONT .[id number] [facility] Rx#:[id number] Other: # Voids 3 4 1 Date of Last Bowel Movement 10/26/18 Weight On Admission 55 kg Narrative: GENERAL: in NAD, looks very her age SKIN: Warm and dry. HEAD: Atraumatic. Normocephalic. EYES: Pupils equal and round. ENT: No nasal bleeding or discharge. NECK: Trachea midline. No JVD. CARDIOVASCULAR: Regular rate and rhythm. RESPIRATORY: No accessory muscle use. GASTROINTESTINAL: Abdomen soft, non-tender, nondistended. MUSCULOSKELETAL: Extremities without clubbing, cyanosis, or edema. No obvious deformities. NEUROLOGICAL: Awake and alert. No aphasia, fluent articulate, No facial asymmetry, OU approximately 3 mm sluggish, OU surgical cataract extraction changes noted, Eomi, No drift, Motor grossly within normal limits. Five out of 5 muscle strength in the arms and legs. Tone normal in all 4 limbs, mild reduced pinprick distal fingertips toes from previous chemotherapy, msr 1-2+ sym , no clonus, planterflexor, ambulating independently without difficulty PSYCHIATRIC: Appropriate mood and affect; insight and judgment normal. - Constitutional no acute distress - Routine HEENT Exam Head: Present: normocephalic Eye: Present: EOMI Objective Laboratory Results - last 24 hr 10/29/18 10/29/18 10/30/18 12:26 16:39 00:07 WBC RBC Hgb Hct MCV MCH MCHC RDW Plt Count MPV Neut % (Auto) Lymph % (Auto) [place] % (Auto) Eos % (Auto) Baso % (Auto) Neut # (Auto) Lymph # (Auto) [place] # (Auto) Eos # (Auto) Baso # (Auto) WBC Differential Differential Comment PT INR Sodium Potassium Chloride Carbon Dioxide Anion Gap BUN Creatinine Estimated GFR POC Glucose 93 92 100 Random Glucose Calcium Total Bilirubin AST ALT Alkaline Phosphatase Total Protein Albumin 10/30/18 10/30/18 10/30/18 05:39 05:39 05:39 WBC 6.0 RBC 3.61 L Hgb 12.1 Hct 35.5 MCV 98.3 MCH 33.5 MCHC 34.1 RDW 13.7 Plt Count 276 MPV 6.7 L Neut % (Auto) 49.3 Lymph % (Auto) 27.6 [place] % (Auto) 7.2 Eos % (Auto) 15.1 H Baso % (Auto) 0.8 Neut # (Auto) 3.0 Lymph # (Auto) 1.7 [place] # (Auto) 0.4 Eos # (Auto) 0.9 H Baso # (Auto) 0.0 WBC Differential . Differential Comment Auto diff final PT 33.3 H INR 3.3 Sodium 145 Potassium 4.0 Chloride 112 H Carbon Dioxide 25.7 Anion Gap 7 BUN 12 Creatinine 0.89 Estimated GFR 60 L POC Glucose Random Glucose 83 Calcium 8.2 L Total Bilirubin 0.3 AST 17 ALT 13 Alkaline Phosphatase 66 Total Protein 6.7 Albumin 3.2 L 10/30/18 06:39 WBC RBC Hgb Hct MCV MCH MCHC RDW Plt Count MPV Neut % (Auto) Lymph % (Auto) [place] % (Auto) Eos % (Auto) Baso % (Auto) Neut # (Auto) Lymph # (Auto) [place] # (Auto) Eos # (Auto) Baso # (Auto) WBC Differential Differential Comment PT INR Sodium Potassium Chloride Carbon Dioxide Anion Gap BUN Creatinine Estimated GFR POC Glucose 96 Random Glucose Calcium Total Bilirubin AST ALT Alkaline Phosphatase Total Protein Albumin Review/Management - Diagnosis (1) Acute right MCA stroke Code(s): I63.511 - Cerebral infarction due to unspecified occlusion or stenosis of right middle cerebral artery Status: Acute Current Visit: Yes (2) Stroke Code(s): I63.9 - Cerebral infarction, unspecified Status: Acute Current Visit: No (3) Hypertension Code(s): I10 - Essential (primary) hypertension Status: Acute Current Visit : Yes (4) Complicated migraine Code(s): G43.109 - Migraine with aura, not intractable, without status migrainosus Status: Acute Current Visit: Yes (5) CHF (congestive heart failure) Code(s): I50.9 - Heart failure, unspecified Status: Acute Current Visit: Yes (6) Syncope Code(s): R55 - Syncope and collapse Status: Acute Current Visit: No (7) Skin laceration Status: Acute Current Visit: No - Review/Management Plan: Right MCA stroke with right MCA occlusion. The right MCA occlusion is chronic. She has acute on chronic stroke. She had right hemispheric strokes noted September 2018 images are not available to compare to. She looks quite well at present. Allergies to statin EF 55-60% on last echo Possible hypercoagulable state with previous history of cancer; followed by oncology Recommendations Continue Coumadin Aspirin has been changed to Plavix. We discussed high risk of bleeding with this combination she also understands that she is having recurrent strokes. EEG Orthostatics Therapy PASTORA is unlikely to be helpful she has right MCA occlusion likely resulting in her strokes. This occlusion has been seen on prior imaging. Cardiology to review her surface echo and make further recommendations Follow exam Discharge planning outpatient follow-up No driving outpatient formal visual field testing (6) Syncope Qualifiers: Syncope type: unspecified Qualified Code(s): R55 - Syncope and collapse
--- NOTE | 2018-10-30 09:47 | P.PNCA ---
Subjective Interval history: Patient denies any cardiac complaints. No further TIA like symptoms. The exam, history, and the medical decision-making described in the above note were completed with the assistance of the mid-level provider. I reviewed and agree with the findings presented. I attest that I had a [id number] encounter with the patient on the same day, and personally performed and documented my assessment and findings in the medical record. doing better will hold off PASTORA for now . Lesions in brain on right side and symptoms are on right side? Medications and Allergies Allergies Allergy/AdvReac Type Severity Reaction Status Date / Time atorvastatin Allergy Severe Anxiety Verified 10/25/18 13:13 ciprofloxacin Allergy Severe Rash Verified 10/25/18 13:13 codeine Allergy Severe Hives/itchi Verified 10/25/18 13:13 ng ezetimibe Allergy Severe ALLERGY TO Verified 10/25/18 13:13 VYTORIN : EZETIMIBE/SIMVASTATIN pitavastatin Allergy Severe "Made me Verified 10/25/18 13:13 feel crazy" simvastatin Allergy Severe ALLERGY TO Verified 10/25/18 13:13 VYTORIN: EZETIMIBE/SIMVASTATIN: ALL TO CRESTOR brimonidine Allergy Intermediate INCREASES Verified 10/25/18 13:13 BP niacin Allergy Intermediate RASH Verified 10/25/18 13:13 sulfamethoxazole Allergy Intermediate HIVES Verified 10/25/18 13:13 timolol Allergy Intermediate INCREASES Verified 10/25/18 13:13 BP trimethoprim Allergy Intermediate HIVES Verified 10/25/18 13:13 latanoprost Allergy Unknown INCREASED Verified 10/25/18 13:13 BP [id number] Reductase AdvReac Severe Muscle and Verified 10/25/18 13:13 Inhibitor joint pain pregabalin AdvReac Unknown UNABLE TO Verified 10/25/18 13:13 FUNCTION; MAKES HER GOOFY Home Medications Medication Instructions Recorded Confirmed Type acetaminophen [Tylenol] 650 mg PO Q6H PRN 10/04/18 10/28/18 History alprazolam [Xanax] 0.25 mg PO BID PRN 10/04/18 10/28/18 History biotin 2,500 mcg PO DAILY 10/04/18 10/28/18 History fluticasone-vilanterol [Breo 1 inh INHALATION DAILY 10/04/18 10/28/18 History Ellipta] losartan 50 mg PO DAILY 10/04/18 10/28/18 History bimatoprost [Lumigan] 1 drp OPHTHALMIC (EYE) QPM 10/07/18 10/28/18 History vitamins A,C,K-hwtg-ddybko [ICaps 1 cap PO BID 10/07/18 10/28/18 History AREDS] warfarin 5 mg PO DAILY 10/29/18 10/29/18 History Active Medications: Active Medications Acetaminophen (Tylenol) 650 mg PO Q4H PRN PRN Reason: Temp > 100.4, p 1-2 Alprazolam (Xanax) 0.25 mg PO BID PRN PRN Reason: Anxiety Last Admin: 10/29/18 22:38 Dose: 0.25 mg Clopidogrel Bisulfate (Plavix) 75 mg PO DAILY [facility] Last Admin: 10/29/18 18:00 Dose: 75 mg Enalaprilat (Vasotec Inj) 1.25 mg IV.PUSH Q6H PRN PRN Reason: Systoloic BP > 210 mmHg Fluticasone/Vilanterol (Breo Ellipta 100/25 Mcg Inh) 1 puff INH DAILY [facility] Last Admin: 10/29/18 09:44 Dose: Not Given Sodium Chloride (Ns Inj) 1,000 mls @ 75 mls/hr IV.CONT .[id number] [facility] Last Admin: 10/30/18 01:30 Dose: 75 mls/hr Lactulose (Lactulose Liq) 30 ml PO DAILY PRN PRN Reason: SEVERE CONSITIPATION Latanoprost (Xalatan 0.005% Opth Drops) 1 drop EACH EYE QPM [facility] Last Admin: 10/29/18 18:01 Dose: Not Given Ondansetron HCl (Zofran Inj) 4 mg IV.PUSH Q6H PRN PRN Reason: NAUSEA OR VOMITING Pharmacy Profile Note (Coumadin Consult Pharmacy) 1 each OTHER UNSCH PRN PRN Reason: PHARMACY DOCUMENTATION Senna/Docusate Sodium (Berta-Colace) 1 tab PO BID [facility] Last Admin: 10/29/18 22:38 Dose: 1 tab Sodium Chloride (Ns Flush) 2 ml IV.FLUSH BID [facility] Last Admin: 10/29/18 22:38 Dose: Not Given Sodium Chloride (Ns Flush) 2 ml IV.FLUSH PRN PRN PRN Reason: FLUSH AFTER USING IV ACCESS Physical Exam Vital signs: Vital Signs 10/29/18 10:30 10/29/18 12:00 10/29/18 16:35 Temperature 97.4 F L 97.5 F L Pulse Rate 94 H 89 82 Respiratory Rate 19 18 20 Blood Pressure 185/84 H 186/81 H 143/65 H Pulse Oximetry 95 99 98 10/29/18 19:55 10/29/18 20:00 10/30/18 00:00 Temperature 97.9 F 98.0 F Pulse Rate 84 90 87 Respiratory Rate 20 20 Blood Pressure 178/75 H 144/71 H Pulse Oximetry 99 96 10/30/18 00:12 10/30/18 03:58 10/30/18 04:57 Temperature 97.9 F Pulse Rate 83 71 78 Respiratory Rate 18 Blood Pressure 187/87 H Pulse Oximetry 96 10/30/18 08:00 Temperature 98.2 F Pulse Rate 75 Respiratory Rate 18 Blood Pressure 179/80 H Pulse Oximetry 97 Intake & Output 10/29/18 10/30/18 10/30/18 18:59 06:59 18:59 Intake Total 1000 / 1000 1000 / 1000 Balance 1000 / 1000 1000 / 1000 Weight 55 kg 55 kg Intake: IV 1000 / 1000 1000 / 1000 NS Inj 1,000 ML @ 75 mls/hr IV. 1000 / 1000 1000 / 1000 CONT .[id number] [facility] Rx#:[id number] Other: # Voids 3 4 1 Date of Last Bowel Movement 10/26/18 Weight On Admission 55 kg - Constitutional no acute distress, average body habitus, cooperative - Routine HEENT Exam Head: Present: normocephalic, atraumatic Eye: Present: EOMI, PERRL, normal accommodation ENT: Present: mucous membranes moist - Routine Neck Exam Present: supple - Routine Respiratory Exam Present: CTA bilaterally - Routine Cardiovascular Exam Present: RRR - Routine Abdominal Exam Present: soft - Routine Extremities Exam Present: full ROM, pulses intact, normal capillary refill - Routine Skin Exam Present: intact - Routine Neurological Exam Present: alert, oriented X3 - Detailed Neurological Exam: Coma Scale Eye Opening: Spontaneous Verbal Response: Oriented Motor Response: Obey commands [place] Coma Scale Total: 15 - Routine Psychiatric Exam Present: normal affect Results 10/30/18 05:39 10/30/18 05:39 Cardiac Enzymes 02/10/28/18 10/29/18 Range/Units 13:10 13:10 00:40 AST 21 (15-37) U/L Troponin I Less than 0.02 L Less than 0.02 L (0.02-0.05) ng/mL 10/29/18 10/30/18 Range/Units 05:24 05:39 AST 17 17 (15-37) U/L Troponin I (0.02-0.05) ng/mL Coagulation 10/28/18 10/29/18 10/30/18 Range/Units 13:10 05:24 05:39 PT 25.6 H 33.3 H 33.3 H (9.8-11.6) sec CBC 10/28/18 10/29/18 10/30/18 Range/Units 13:10 05:24 05:39 WBC 8.1 6.6 6.0 (4.0-11.0) th/mm3 RBC 4.04 3.39 L 3.61 L (4.00-5.30) mil/mm3 Hgb 13.4 11.3 L D 12.1 (11.6-15.3) gm/dL Hct 39.5 32.7 L 35.5 (35.0-46.0) % Plt Count 322 284 276 (150-450) th/mm3 Neut # (Auto) 4.6 3.2 3.0 (1.8-7.7) th/mm3 Lymph # (Auto) 2.1 2.0 1.7 (1.0-4.8) th/mm3 [place] # (Auto) 0.4 0.5 0.4 (0.0-0.9) th/mm3 Eos # (Auto) 0.8 H 0.9 H 0.9 H (0.0-0.4) th/mm3 Baso # (Auto) 0.1 0.0 0.0 (0.0-0.2) th/mm3 Comprehensive Metabolic Panel 10/28/18 10/29/18 10/30/18 Range/Units 13:10 05:24 05:39 Sodium 138 143 145 (136-145) meq/L Potassium 4.0 4.3 4.0 (3.5-5.1) meq/L Chloride 105 112 H 112 H (98-107) meq/L Carbon Dioxide 26.0 25.4 25.7 (21.0-32.0) meq/L BUN 19 H 15 12 (7-18) mg/dL Creatinine 1.11 H 0.91 0.89 (0.50-1.00) mg/dL Calcium 8.9 8.3 L 8.2 L (8.5-10.1) mg/dL AST 21 17 17 (15-37) U/L ALT 19 15 13 (10-53) U/L Alkaline Phosphatase 81 63 66 (45-117) U/L Total Protein 8.1 D 6.4 D 6.7 (6.4-8.2) g/dL Albumin 4.3 3.1 L D 3.2 L (3.4-5.0) g/dL Intake and Output 10/29/18 10/30/18 10/30/18 22:59 06:59 14:59 Intake Total 1000 / 1000 Balance 1000 / 1000 Intake: IV 1000 / 1000 NS Inj 1,000 ML @ 75 mls/hr IV. 1000 / 1000 CONT .[id number] [facility] Rx#:[id number] Other: # Voids 2 4 1 Weight 55 kg - Imaging and Cardiology Imaging: Impressions Head CT 10/28/18 13:06 CONCLUSION: 1. Possible new area of subtle edema in the right parietal-occipital occipital region compared to previous. MRI may help in evaluation. . . Head MRI 10/28/18 13:47 CONCLUSION: 1. New area of restricted diffusion right posterior right posterior parietal region without hemorrhage 2. Evolving areas of restricted diffusion to have all but resolved high in the right centrum semiovale. 3. Findings are suspicious for an embolic process involving the right hemisphere. Head MRA 10/28/18 14:53 CONCLUSION: 1. There continues to be a focal short segment occlusion involving the right M1 /M2 junction appears to be essentially stable in its appearance compared to the recent prior CTA of the brain. 2. Otherwise, no other new or significant changes are demonstrated. 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 She has acute on chronic stroke. She had right hemispheric strokes noted September 2018 images are not available to compare to Allergic to statin Possible hypercoagulable state with previous history of cancer; followed by oncology. She will need to follow up with Dr. Colindres once discharged. Continue Coumadin, Aspirin has been changed to Plavix. We discussed high risk of bleeding with this combination, patient understands and accepts the risk due to recurrent strokes. PASTORA is unlikely to be helpful she has right MCA occlusion likely resulting in her strokes. This occlusion has been seen on prior imaging. Patient is cleared from cardiology standpoint for discharge home. She will need in office INR on Sunday. She will need hospital follow up in 2 weeks. Patient will continue outpatient [facility]. The patient was seen and evaluated by Dr. Marshall who participated in care, management, and decision making. Code Status: DNR Discussed Condition With: Dr. Marshall, RN
[2018-10-30] MEDS: Senna/Docusate Sodium 8.6/50 MG Tablet PO SCH ×2 (09:54→21:17)
--- NOTE | 2018-10-30 12:11 | P.DCO ---
Physical Therapy Instructions: Resume any prior level of therapy Occupational Therapy Instructions: Resume any prior level of therapy Home Health Nursing Order: Medical education and Nursing assessment with vital signs Instructions: Resume any prior level of therapy Case Management Consult Case Management Consult-Home Health: Yes I have seen patient Silvana Esteban on 10/30/18. My clinical findings support the need for the requested home health care services because: Limited mobility due to disease progression, Deconditioned with increased weakness and Limited ability to care for self I certify that my clinical findings support that this patient is homebound because: Unsteady gait/balance, Unsafe to leave home unassisted and Unable to use public transportation
--- NOTE | 2018-10-30 12:14 | P.DS ---
DS: Providers Date of admission: 10/28/18 16:29 Primary care physician: Mark Villanueva MD Consults: 10/28/18 17:12 Consult to Neurology Routine Consulting Provider: Mason Lin Preferred Broke Beater Machine Operator:: Gonzalez Figueroa Patient known to:: Eliot Tena Reason for Consultation: CVA Notified:: Service Spoke with:: Eli Date Notified:: 10/28/18 Time Notified:: 17:30 Ordering Provider: LUCY 10/28/18 17:45 Consult to Cardiology Routine Consulting Provider: Kelsie Marshall Does the patient have a Graduate Civil Engineer who follows them?: Yes Preferred Digital Art Director:: Kelsie Marshall Reason for Consultation: PASTORA requested per neurology for CVA thanks Notified:: Service Spoke with:: Aylin Date Notified:: 10/28/18 Time Notified:: 18:01 Ordering Provider: REGGIE 10/30/18 12:05 HUB Only Consult Order Routine Consulting Provider: [facility] Reason for Consultation: [facility] Notified:: Office Spoke with:: CHARLETTE Date Notified:: 10/30/18 Time:: 12:06 Brief History from admission: The patient is an 83-year-old female with past medical history significant for CVA and hypertension who is presenting to the hospital with tingling in her face and arm. The patient said that she was at her doctor's office today when she developed tingling on the right side of her face and also developed tingling down her right arm. She also mentioned that her legs felt funny when standing. She says she was recently in the hospital in the beginning of October where she was treated for a stroke. She is currently on Coumadin. She said she came to the hospital again this past Sunday because she had an episode where she fainted. The patient is anxious about her situation and wants to know what is going on. She says her symptoms have resolved and she is feeling back to baseline. Neurology was contacted by the emergency department and further imaging including an MRI was ordered which indicated new strokes. DS: Summary Mrs. Esteban is an 83-year-old female. She is was admitted secondary to an acute CVA. She has been on Coumadin, started recently, and aspirin. This is not her first CVA. By today symptoms have resolved. She has been transitioned to Plavix and Coumadin as a baseline treatment. Patient is medically stable and cleared for discharge home today after completion of EEG. Time Spent with Patient Total time spent providing and/or coordinating discharge services: Less than 30 minutes Quality: VTE Deep Vein Thrombosis/Pulmonary Embolism Present on Admission: No Results Labs on day of discharge: Labs from last 24 hours 10/30/18 10/30/18 10/30/18 11:00 06:39 05:39 WBC RBC Hgb Hct MCV MCH MCHC RDW Plt Count MPV Neut % (Auto) Lymph % (Auto) [place] % (Auto) Eos % (Auto) Baso % (Auto) Neut # (Auto) Lymph # (Auto) [place] # (Auto) Eos # (Auto) Baso # (Auto) WBC Differential Differential Comment PT INR Sodium 145 Potassium 4.0 Chloride 112 H Carbon Dioxide 25.7 Anion Gap 7 BUN 12 Creatinine 0.89 Estimated GFR 60 L POC Glucose 89 96 Random Glucose 83 Calcium 8.2 L Total Bilirubin 0.3 AST 17 ALT 13 Alkaline Phosphatase 66 Total Protein 6.7 Albumin 3.2 L 10/30/18 10/30/18 10/30/18 05:39 05:39 00:07 WBC 6.0 RBC 3.61 L Hgb 12.1 Hct 35.5 MCV 98.3 MCH 33.5 MCHC 34.1 RDW 13.7 Plt Count 276 MPV 6.7 L Neut % (Auto) 49.3 Lymph % (Auto) 27.6 [place] % (Auto) 7.2 Eos % (Auto) 15.1 H Baso % (Auto) 0.8 Neut # (Auto) 3.0 Lymph # (Auto) 1.7 [place] # (Auto) 0.4 Eos # (Auto) 0.9 H Baso # (Auto) 0.0 WBC Differential . Differential Comment Auto diff final PT 33.3 H INR 3.3 Sodium Potassium Chloride Carbon Dioxide Anion Gap BUN Creatinine Estimated GFR POC Glucose 100 Random Glucose Calcium Total Bilirubin AST ALT Alkaline Phosphatase Total Protein Albumin 10/29/18 10/29/18 16:39 12:26 WBC RBC Hgb Hct MCV MCH MCHC RDW Plt Count MPV Neut % (Auto) Lymph % (Auto) [place] % (Auto) Eos % (Auto) Baso % (Auto) Neut # (Auto) Lymph # (Auto) [place] # (Auto) Eos # (Auto) Baso # (Auto) WBC Differential Differential Comment PT INR Sodium Potassium Chloride Carbon Dioxide Anion Gap BUN Creatinine Estimated GFR POC Glucose 92 93 Random Glucose Calcium Total Bilirubin AST ALT Alkaline Phosphatase Total Protein Albumin Impressions ITS Impressions Head CT 10/28/18 13:06 CONCLUSION: 1. Possible new area of subtle edema in the right parietal-occipital occipital region compared to previous. MRI may help in evaluation. . . Head MRI 10/28/18 13:47 CONCLUSION: 1. New area of restricted diffusion right posterior right posterior parietal region without hemorrhage 2. Evolving areas of restricted diffusion to have all but resolved high in the right centrum semiovale. 3. Findings are suspicious for an embolic process involving the right hemisphere. Head MRA 10/28/18 14:53 CONCLUSION: 1. There continues to be a focal short segment occlusion involving the right M1 /M2 junction appears to be essentially stable in its appearance compared to the recent prior CTA of the brain. 2. Otherwise, no other new or significant changes are demonstrated. Discharge Plan Discharge Disposition Patient Disposition: W/Home Health Service Discharge Condition Condition: Stable Discharge Order Discharge Orders: Discharge Order (Routine); Ordered 10/30/18 Ordered By: Jovanny Hdez Discharge Details Anticipated Discharge Date: 10/30/18 Discharge Comment: January discharge when cleared by neurology and after EEG. Prescriptions transmitted to listed pharmacy. Physicians Team Primary Care Provider: Mark Villanueva Attending Provider: Jovanny Hdez Other Providers: Mason Lin ; Kelsie Marshall ; [facility] Rxs /Orders / Referrals /Forms Prescriptions: New clopidogrel [Plavix] 75 mg Tablet 75 mg PO DAILY Qty: 30 RF: 0 Continue losartan 50 mg Tablet 50 mg PO DAILY RF: 0 acetaminophen [Tylenol] 325 mg Capsule 650 mg PO Q6H PRN (Reason: Pain) RF: 0 alprazolam [Xanax] 0.25 mg Tablet 0.25 mg PO BID PRN (Reason: Anxiety) RF: 0 biotin 2,500 mcg Capsule 2,500 mcg PO DAILY RF: 0 fluticasone-vilanterol [Breo Ellipta] 100-25 mcg/dose Blister With Device 1 inh INHALATION DAILY RF: 0 vitamins A,C,B-sxgu-gdvbre [ICaps AREDS] 14,320-226-200 vkln-zo-meom Capsule 1 cap PO BID RF: 0 bimatoprost [Lumigan] 0.01 % Drops 1 drp OPHTHALMIC (EYE) QPM RF: 0 amlodipine [Norvasc] 5 mg Tablet 10 mg PO DAILY Qty: 60 RF: 0 warfarin 5 mg Tablet 5 mg PO DAILY RF: 0 Discontinued aspirin [Aspir-81] 81 mg Tablet,Delayed Release (Dr/Ec) 81 mg PO DAILY RF: 0 Referrals: Eliot Tena MD, PhD [Physician] - Call for Appointment Mark Villanueva MD [Primary Care Provider] - See Instructions Discharge Instructions Patient Printed Instructions: General Headache (ED) Additional Instructions: Rest, hydrate. Stop taking low dose aspirin daily. Instead take a full dose (325 mg) aspirin daily. Resume other at home medications as previously prescribed. Follow-up with Dr. Tena as discussed. Return to the ED for worsening symptoms or any urgent or emergent medical condition. Status ED Status: Left Department
--- NOTE | 2018-10-30 17:34 | MG ---
cc: Gonzalez Bledsoe MD EEG NUMBER: [id number]. No history provided. Seven Hz diffuse slowing is noted. Recording overall is synchronous and symmetric. Photic stimulation is performed without significant posterior driving. Mild diffuse delta slowing is occasionally noted. No epileptiform or seizure activity is noted. IMPRESSION: Minimal diffuse slowing. Otherwise, a normal electroencephalogram. MD DONNA DayM/matheus , 05:07 PM , 05:12 PM
[2018-10-30] MEDS: Latanoprost 0.005% Opth Drops 2.5 ML Bottle EACH EYE SCH (18:17)
[2018-10-30] MEDS: ALPRAZolam 0.25 MG Tablet PO PRN (21:17)
[2018-10-31] MEDS: Sod Chloride 0.9% Inj 1,000 ML IV.CONT SCH (00:55)
[2018-10-31 06:23] LABS: INR 2.2 Ratio; Prothrombin Time 21.8 sec (9.8-11.6)
[2018-10-31 08:51] VITALS: BP 187/86; PULSE 78; RESP 16; TEMP 97.4
--- NOTE | 2018-10-31 09:27 | P.PNIM ---
Subjective Interval history: EEG shows no acute pathology. Patient medically stable and cleared for discharge. Physical Exam Vital signs: Vital Signs 10/30/18 11:00 10/30/18 15:48 10/30/18 20:00 Temperature 97.9 F 97.9 F 98 F Pulse Rate 85 82 84 Respiratory Rate 18 20 20 Blood Pressure 180/81 H 139/77 157/70 H Pulse Oximetry 98 100 96 10/30/18 21:33 10/31/18 00:00 10/31/18 04:00 Temperature 97.8 F 97.5 F L Pulse Rate 58 L 79 81 Respiratory Rate 20 20 Blood Pressure 152/70 H 151/69 H Pulse Oximetry 97 95 10/31/18 08:00 Temperature 97.4 F L Pulse Rate 78 Respiratory Rate 16 Blood Pressure 187/86 H Pulse Oximetry 98 Intake & Output 10/30/18 10/31/18 10/31/18 18:59 06:59 18:59 Intake Total 1000 / 1000 Balance 1000 / 1000 Weight 54.1 kg Intake: IV 1000 / 1000 NS Inj 1,000 ML @ 75 mls/hr IV. 1000 / 1000 CONT .[id number] [facility] Rx#:[id number] Other: # Voids 1 3 3 Date of Last Bowel Movement 10/26/18 # Bowel Movements 1 Narrative: GENERAL: NAD, A&Ox3 HEAD: Normocephalic. NECK: Supple, trachea midline. No lymphadenopathy. EYES: No scleral icterus. No injection or drainage. CARDIOVASCULAR: Regular rate and rhythm without murmurs, gallops, or rubs. RESPIRATORY: Breath sounds equal bilaterally. No accessory muscle use. GASTROINTESTINAL: Abdomen soft, non-tender, nondistended. MUSCULOSKELETAL: No cyanosis, or edema. SKIN: Warm and dry. NEURO: No focal neurological deficits. Results Labs CBC & Chem 7: 10/30/18 05:39 10/30/18 05:39 Assessment and Plan Plan 83-year-old female admitted secondary to acute CVA Discharge home today. Acute CVA Positive findings on MRI Patient on Coumadin and aspirin at time of CVA Continue Coumadin and aspirin Follow INR INR today is 3.3, will continue to monitor rather than adjust at this point EEG shows no acute pathology Monitor on telemetry Neurology following Chronic renal insufficiency Follow renal function Avoid nephrotoxins DVT prophylaxis Coumadin Progress Note: Quality VTE Deep Vein Thrombosis/Pulmonary Embolism Present on Admission: No
--- NOTE | 2018-10-31 10:41 | P.PNNEU ---
Subjective Subjective Comments: no esparza, no vidion loss, no cp. feels well Active Medications: Active Medications Acetaminophen (Tylenol) 650 mg PO Q4H PRN PRN Reason: Temp > 100.4, p 1-2 Last Admin: 10/30/18 16:36 Dose: 650 mg Alprazolam (Xanax) 0.25 mg PO BID PRN PRN Reason: Anxiety Last Admin: 10/30/18 21:17 Dose: 0.25 mg Clopidogrel Bisulfate (Plavix) 75 mg PO DAILY [facility] Last Admin: 10/31/18 10:14 Dose: 75 mg Enalaprilat (Vasotec Inj) 1.25 mg IV.PUSH Q6H PRN PRN Reason: Systoloic BP > 210 mmHg Fluticasone/Vilanterol (Breo Ellipta 100/25 Mcg Inh) 1 puff INH DAILY [facility] Last Admin: 10/30/18 09:54 Dose: 1 puff Sodium Chloride (Ns Inj) 1,000 mls @ 75 mls/hr IV.CONT .[id number] [facility] Last Admin: 10/31/18 00:55 Dose: Not Given Lactulose (Lactulose Liq) 30 ml PO DAILY PRN PRN Reason: SEVERE CONSITIPATION Latanoprost (Xalatan 0.005% Opth Drops) 1 drop EACH EYE QPM [facility] Last Admin: 10/30/18 18:17 Dose: Not Given Ondansetron HCl (Zofran Inj) 4 mg IV.PUSH Q6H PRN PRN Reason: NAUSEA OR VOMITING Patient Medication Teaching (Coumadin Booklet) 1 each OTHER ONCE@1500 ONE Stop: 10/31/18 15:01 Pharmacy Profile Note (Coumadin Consult Pharmacy) 1 each OTHER UNSCH PRN PRN Reason: PHARMACY DOCUMENTATION Senna/Docusate Sodium (Berta-Colace) 1 tab PO BID [facility] Last Admin: 10/30/18 21:17 Dose: Not Given Sodium Chloride (Ns Flush) 2 ml IV.FLUSH BID [facility] Last Admin: 10/30/18 21:17 Dose: Not Given Sodium Chloride (Ns Flush) 2 ml IV.FLUSH PRN PRN PRN Reason: FLUSH AFTER USING IV ACCESS Warfarin Sodium (Coumadin) 5 mg PO DAILY@1600 LEELA Allergies/Adverse Reactions: Allergies Allergy/AdvReac Type Severity Reaction Status Date / Time atorvastatin Allergy Severe Anxiety Verified 10/25/18 13:13 ciprofloxacin Allergy Severe Rash Verified 10/25/18 13:13 codeine Allergy Severe Hives/itchi Verified 10/25/18 13:13 ng ezetimibe Allergy Severe ALLERGY TO Verified 10/25/18 13:13 VYTORIN : EZETIMIBE/SIMVASTATIN pitavastatin Allergy Severe "Made me Verified 10/25/18 13:13 feel crazy" simvastatin Allergy Severe ALLERGY TO Verified 10/25/18 13:13 VYTORIN: EZETIMIBE/SIMVASTATIN: ALL TO CRESTOR brimonidine Allergy Intermediate INCREASES Verified 10/25/18 13:13 BP niacin Allergy Intermediate RASH Verified 10/25/18 13:13 sulfamethoxazole Allergy Intermediate HIVES Verified 10/25/18 13:13 timolol Allergy Intermediate INCREASES Verified 10/25/18 13:13 BP trimethoprim Allergy Intermediate HIVES Verified 10/25/18 13:13 latanoprost Allergy Unknown INCREASED Verified 10/25/18 13:13 BP Kpqgkry-Aoi-Sco Reductase AdvReac Severe Muscle and Verified 10/25/18 13:13 Inhibitor joint pain pregabalin AdvReac Unknown UNABLE TO Verified 10/25/18 13:13 FUNCTION; MAKES HER GOOFY Review of Systems All other systems reviewed negative except as stated in HPI Physical Exam Vital signs: Vital Signs 10/30/18 11:00 10/30/18 15:48 10/30/18 20:00 Temperature 97.9 F 97.9 F 98 F Pulse Rate 85 82 84 Respiratory Rate 18 20 20 Blood Pressure 180/81 H 139/77 157/70 H Pulse Oximetry 98 100 96 10/30/18 21:33 10/31/18 00:00 10/31/18 04:00 Temperature 97.8 F 97.5 F L Pulse Rate 58 L 79 81 Respiratory Rate 20 20 Blood Pressure 152/70 H 151/69 H Pulse Oximetry 97 95 10/31/18 08:00 Temperature 97.4 F L Pulse Rate 78 Respiratory Rate 16 Blood Pressure 187/86 H Pulse Oximetry 98 Intake & Output 10/30/18 10/31/18 10/31/18 18:59 06:59 18:59 Intake Total 1000 / 1000 Balance 1000 / 1000 Weight 54.1 kg Intake: IV 1000 / 1000 NS Inj 1,000 ML @ 75 mls/hr IV. 1000 / 1000 CONT .[id number] LEELA Rx#:[id number] Other: # Voids 1 3 3 Date of Last Bowel Movement 10/26/18 # Bowel Movements 1 Narrative: GENERAL: in NAD, looks very her age SKIN: Warm and dry. HEAD: Atraumatic. Normocephalic. EYES: Pupils equal and round. ENT: No nasal bleeding or discharge. NECK: Trachea midline. No JVD. CARDIOVASCULAR: Regular rate and rhythm. RESPIRATORY: No accessory muscle use. GASTROINTESTINAL: Abdomen soft, non-tender, nondistended. MUSCULOSKELETAL: Extremities without clubbing, cyanosis, or edema. No obvious deformities. NEUROLOGICAL: Awake and alert. No aphasia, fluent articulate, No facial asymmetry, OU approximately 3 mm sluggish, OU surgical cataract extraction changes noted, Eomi, No drift, Motor grossly within normal limits. Five out of 5 muscle strength in the arms and legs. Tone normal in all 4 limbs, mild reduced pinprick distal fingertips toes from previous chemotherapy, msr 1-2+ sym , no clonus, planterflexor, ambulating independently without difficulty PSYCHIATRIC: Appropriate mood and affect; insight and judgment normal. - Constitutional no acute distress - Routine HEENT Exam Head: Present: normocephalic Eye: Present: EOMI Objective Laboratory Results - last 24 hr 10/30/18 10/30/18 10/31/18 11:00 17:27 04:16 PT 21.8 H D INR 2.2 POC Glucose 89 98 Review/Management - Diagnosis (1) Acute right MCA stroke Code(s): I63.511 - Cerebral infarction due to unspecified occlusion or stenosis of right middle cerebral artery Status: Acute (2) Stroke Code(s): I63.9 - Cerebral infarction, unspecified Status: Acute (3) Hypertension Code(s): I10 - Essential (primary) hypertension Status: Acute (4) Complicated migraine Code(s): G43.109 - Migraine with aura, not intractable, without status migrainosus Status: Acute (5) CHF (congestive heart failure) Code(s): I50.9 - Heart failure, unspecified Status: Acute (6) Syncope Code(s): R55 - Syncope and collapse Status: Acute (7) Skin laceration Status: Acute - Review/Management Plan: Right MCA stroke with right MCA occlusion. The right MCA occlusion is chronic. She has acute on chronic stroke. She had right hemispheric strokes noted September 2018 images are not available to compare to. She looks quite well at present. Allergies to statin EF 55-60% on last echo Possible hypercoagulable state with previous history of cancer; followed by oncology Recommendations neuro stable Continue Coumadin Aspirin has been changed to Plavix. We discussed high risk of bleeding with this combination she also understands that she is having recurrent strokes. EEG- no sz Orthostatics Therapy PASTORA is unlikely to be helpful she has right MCA occlusion likely resulting in her strokes. This occlusion has been seen on prior imaging. Cardiology to review her surface echo and make further recommendations Follow exam Discharge planning outpatient follow-up No driving outpatient formal visual field testing (6) Syncope Qualifiers: Syncope type: unspecified Qualified Code(s): R55 - Syncope and collapse
[2018-10-31 10:45] VITALS: O2SAT 97
== END 2018-10-31 12:40 | disposition home health service (06) | DRG 65 ==
LOC: NEPE 11:33 → NEDA 16:29 → NEDH 21:09 → N05 10-29 11:57
PROVIDERS: ADMIT Hospitalist; ATTEND Hospitalist
CPT/HCPCS: 70450; 70544; 70553; 71010; 71045; 80053; 81001; 82948; 82962; 83520; 83735; 83880; 84484; 85025; 85610; 90760; 92610; 93005; 95819; 96360; 97110; 97116; 97162; 97167; 97535; 99285; A9585; G0195; G8996; G8997; G8998; J7030; J7040